=== PATIENT | female | born 1955 | race American Indian/Alaskan Native ===

== ENCOUNTER 2017-05-13 16:25 | Inpatient (IN) | payer BC ==
[2017-05-13 16:28] VITALS: BMI 29.7
[2017-05-13] MEDS ORDERED: Morphine 2 mg/ml ISec IVP STA (16:43)
[2017-05-13] MEDS ORDERED: Sodium Chloride 0.9% 1,000 ML IV STA (16:43)
--- NOTE | 2017-05-13 16:50 | ED PDOC ---
Arrival/HPI - General Chief Complaint: Abdominal Pain Time Seen by Provider: 05/13/17 16:26 Historian: Patient - History of Present Illness Narrative History of Present Illness (Text): 05/13/17 16:47 This 61 yo female with pmh diverticulitis, and endometrial Ca. s/p total hysterectomy, presents to this ED c/o LLQ abdominal pain x 7 days. Patient stated abdominal pain worsen since last night. Patient is nauseous, and she had vomited multiple times today. Denies sob, fever, rectal bleeding, or urinary symptoms. Patient is s/p appendectomy Dr. Guevara, PMD Dr. Arrieta, GI Time/Duration: 1 week Symptom Course: Worsening (since last night) Severity Level: 8 Context: Home Past Medical History - Provider Review Nursing Documentation Reviewed: Yes - Infectious Disease Hx of Infectious Diseases: None - Cardiac Hx Cardiac Disorders: No - Pulmonary Hx Respiratory Disorders: No - Neurological Hx Neurological Disorder: No - HEENT Hx HEENT Disorder: No - Renal Hx Renal Disorder: No - Endocrine/Metabolic Hx Endocrine Disorders: No - Hematological/Oncological Hx Cancer: Yes (endometrial) - Integumentary Hx Dermatological Disorder: No - Musculoskeletal/Rheumatological Hx Back Pain: Yes Hx Falls: No - Gastrointestinal Hx Gastroesophageal Reflux: Yes - Genitourinary/Gynecological Hx Genitourinary Disorders: No - Psychiatric Hx Psychophysiologic Disorder: No Hx Substance Use: No - Surgical History Hx Hysterectomy: Yes - Anesthesia Hx Anesthesia: Yes Hx Anesthesia Reactions: No Hx Malignant Hyperthermia: No Family/Social History - Physician Review Nursing Documentation Reviewed: Yes Family/Social History: No Known Family HX Smoking Status: Former Smoker Hx Alcohol Use: Yes Frequency of alcohol use: Socially Hx Substance Use: No Allergies/Home Meds Allergies/Adverse Reactions: Allergies No Known Allergies Allergy (Verified 04/29/16 00:55) Home Medications: Home Meds Medication Instructions Recorded Confirmed Pantoprazole Sodium [Protonix] 1 tab PO DAILY PRN 05/13/17 05/13/17 Review of Systems - Review of Systems Constitutional: Normal. absent: Fatigue, Weight Change, Fevers Eyes: Normal ENT: Normal Respiratory: Normal Cardiovascular: Normal Gastrointestinal: Abdominal Pain, Nausea, Vomiting Genitourinary Female: Normal Musculoskeletal: Normal Skin: Normal Neurological: Normal Endocrine: Normal Hemo/Lymphatic: Normal Psychiatric: Normal Physical Exam Vital Signs Temp Pulse Resp BP Pulse Ox 05/13/17 22:50 92 H 16 114/72 96 05/13/17 18:25 103 H 18 139/86 97 05/13/17 16:28 99.1 F 105 H 18 147/87 98 Temperature: Afebrile Blood Pressure: Normal Pulse: Regular Respiratory Rate: Normal Appearance: Positive for: Well-Appearing, Non-Toxic, Uncomfortable Pain Distress: Moderate Mental Status: Positive for: Alert and Oriented X 3 - Systems Exam Head: Present: Atraumatic, Normocephalic Pupils: Present: PERRL Extroacular Muscles: Present: EOMI Conjunctiva: Present: Normal Mouth: Present: Moist Mucous Membranes Neck: Present: Normal Range of Motion Respiratory/Chest: Present: Clear to Auscultation, Good Air Exchange. No: Respiratory Distress, Accessory Muscle Use Cardiovascular: Present: Regular Rate and Rhythm, Normal S1, S2. No: Murmurs Abdomen: Present: Tenderness (LLQ tenderness on palpation), Normal Bowel Sounds. No: Distention, Peritoneal Signs, Rebound, Guarding Back: Present: Normal Inspection. No: CVA Tenderness Upper Extremity: Present: Normal Inspection, Normal ROM, NORMAL PULSES, Neurovascularly Intact, Capillary Refill < 2s. No: Cyanosis, Edema Lower Extremity: Present: Normal Inspection, NORMAL PULSES, Normal ROM, Neurovascularly Intact, Capillary Refill < 2 s. No: Edema, CALF TENDERNESS Neurological: Present: GCS=15, CN II-XII Intact, Speech Normal, Motor Func Grossly Intact, Normal Sensory Function, Normal Cerebellar Funct, Gait Normal Skin: Present: Warm, Dry, Normal Color. No: Rashes Psychiatric: Present: Alert, Oriented x 3 Medical Decision Making ED Course and Treatment: 05/13/17 22:[address] Rose regarding patient history, and symptoms. We reviewed labs and CT/ US results. He agrees with plan for admission for diverticulitis. Re-evaluation Time: 22:54 Reassessment Condition: Re-examined, Improved - Lab Interpretations Lab Results: 05/13/17 17:26 05/13/17 17:26 Lab Results 05/13/17 20:50: Urine Color Yellow, Urine Appearance Clear, Urine pH 7.0, Ur Specific [place] 1.010, Urine Protein Negative, Urine Glucose (UA) Negative, Urine Ketones Negative, Urine Blood Trace-intact H, Urine Nitrate Negative, Urine Bilirubin Negative, Urine Urobilinogen 0.2, Ur Leukocyte Esterase Negative , Urine RBC 0 - 2, Urine WBC 0 - 2, Ur Epithelial Cells 3 - 4 05/13/17 17:26: Sodium 140, Potassium 3.6, Chloride 100, Carbon Dioxide 28, Anion Gap 16, BUN 14, Creatinine 0.5, Est GFR ( Amer) > 60, Est GFR (Non- Af Amer) > 60, Random Glucose 100, Calcium 9.2, Total Bilirubin 0.6, AST 40 H, ALT 29, Alkaline Phosphatase 104, Total Protein 8.3, Albumin 4.3, Globulin 4.1, Albumin/Globulin Ratio 1.0 L, Amylase 68, Lipase 30 05/13/17 17:26: PT 11.7, INR 1.08, APTT 26.3 05/13/17 17:26: WBC 12.1 H D, RBC 3.83, Hgb 11.7 L, Hct 36.3, MCV 94.8, MCH 30.5 , MCHC 32.2, RDW 13.3, Plt Count 286, MPV 9.7, Gran % 72.9 H, Lymph % (Auto) 18.8 L, [place] % (Auto) 7.9 H, Eos % (Auto) 0.2 L, Baso % (Auto) 0.2, Gran # 8.83 H, Lymph # 2.3, [place] # 1.0 H, Eos # 0.0, Baso # 0.03 I have reviewed the lab results: Yes Interpretation: Abnormal lab values - RAD Interpretation Narrative RAD Interpretations (Text): 05/13/17 20:27 [facility] Preliminary Radiology Report with Addendum Call: [phone] assistance Online chat: [email or web address] Patient Name: FREDERICK CONTE I FINDINGS: Lower thorax: No acute findings. ABDOMEN: Liver: Fatty infiltration of the liver. Gallbladder and bile ducts: Several gallstones. Pancreas: Unremarkable. No mass. No ductal dilation. Spleen: Unremarkable. No splenomegaly. Adrenals: Unremarkable. No mass. Kidneys and ureters: Subcentimeter low-density lesion in the kidneys are too small to characterize. No hydronephrosis. Stomach and bowel: There is significant wall thickening noted involving the descending/sigmoid colon. This may represent colitis less likely due to diverticulitis. There are several diverticula and minimal pericolonic infiltration of fat. Bowel evaluation is limited due to lack of distention. Appendix: No findings to suggest acute appendicitis. PELVIS: Bladder: Unremarkable. No mass. Reproductive: Unremarkable as visualized. ABDOMEN and PELVIS: Intraperitoneal space: Unremarkable. No free air. No significant fluid collection. Bones/joints: No acute fracture. No dislocation. Soft tissues: Small fat-containing umbilical hernia. Vasculature: The left ovarian vein is dilated there is ? hypodensity within the left ovarian vein. Possibility of a thrombus with thrombophlebitis cannot be excluded. Lymph nodes: Unremarkable. No enlarged lymph nodes. IMPRESSION: 1. Several gallstones. 2. There is significant wall thickening noted involving the descending/sigmoid colon. This may represent colitis less likely due to diverticulitis. There are several diverticula and minimal pericolonic infiltration of fat. 3. The left ovarian vein is dilated there is ? hypodensity within the left ovarian vein. Possibility of a thrombus with thrombophlebitis cannot be excluded. Thank you for allowing us to participate in the care of your patient. Dictated and Authenticated by: Joyce Norwood MD 05/13/2017 7:54 PM Eastern Time ([place] & [place]) Radiology Orders: 05/13/17 16:46 ABD & PELVIS IV CONTRAST ONLY [CT] Stat 05/13/17 20:13 TRANSVAGINAL [US] Stat 05/13/17 22:38 ABDOMEN COMPLETE [US] Routine 05/13/17 22:55 CHEST PORTABLE [RAD] Stat - EKG Interpretation Interpreted by ED Physician: Yes (NSR @ 92 bpm. Normal interval) Type: 12 lead EKG Comparison: No previous EKG avail. - Medication Orders Current Medication Orders: Docusate Sodium (Colace) 100 mg PO BID [facility] Famotidine (Pepcid) 20 mg IVP DAILY [facility] Ciprofloxacin (Cipro 200mg/100ml D5w) 100 mls @ 67 mls/hr IVPB Q12 [facility] PRN Reason: Protocol Stop: 05/14/17 00:15 Metronidazole (Flagyl) 500 mg in 100 mls @ 100 mls/hr IVPB Q8 [facility] PRN Reason: Protocol Sodium Chloride (Sodium Chloride 0.9%) 1,000 mls @ 125 mls/hr IV .Q8H [facility] Morphine Sulfate (Morphine) 4 mg IVP Q4H PRN PRN Reason: Pain, moderate (4-7) Ondansetron HCl (Zofran Inj) 4 mg IVP Q4H PRN PRN Reason: Nausea/Vomiting Discontinued Medications Famotidine (Pepcid) 20 mg IVP STAT STA Stop: 05/13/17 16:44 Last Admin: 05/13/17 17:30 Dose: 20 mg Sodium Chloride (Sodium Chloride 0.9%) 1,000 mls @ 1,000 mls/hr IV .Q1H [facility] Stop: 05/13/17 17:42 Last Admin: 05/13/17 17:28 Dose: 1,000 mls/hr Ciprofloxacin (Cipro 400mg/200ml Dsw) 400 mg in 200 mls @ 133.3 mls/hr IVPB STAT STA PRN Reason: Protocol Stop: 05/13/17 21:58 Last Admin: 05/13/17 22:45 Dose: 133.3 mls/hr Metronidazole (Flagyl) 500 mg in 100 mls @ 100 mls/hr IVPB STAT STA PRN Reason: Protocol Stop: 05/13/17 21:28 Last Admin: 05/13/17 21:12 Dose: 100 mls/hr Iohexol (Omnipaque 350 100 Ml) Confirm Administered Dose 350 mg .ROUTE .STK-MED ONE Stop: 05/13/17 18:44 Morphine Sulfate (Morphine) 2 mg IVP STAT STA Stop: 05/13/17 16:44 Last Admin: 05/13/17 17:30 Dose: 2 mg Re-Assess: DINA Pain Assessment Document 05/13/17 18:30 ARMEN (Rec: 05/13/17 18:51 ARMEN [id number]) Pain Reassessment Is this a pain reassessment? Yes Presence of Pain Presence of Pain Yes Pain Scale Used Pain Scale Used Numeric Morphine Sulfate (Morphine) 4 mg IVP STAT STA Stop: 05/13/17 19:03 Last Admin: 05/13/17 19:51 Dose: 4 mg Ondansetron HCl (Zofran Inj) 4 mg IVP STAT STA Stop: 05/13/17 16:44 Last Admin: 05/13/17 17:30 Dose: 4 mg Ondansetron HCl (Zofran Inj) 4 mg IVP STAT STA Stop: 05/13/17 19:03 Last Admin: 05/13/17 19:51 Dose: 4 mg Disposition/Present on Arrival - Present on Arrival Any Indicators Present on Arrival: No History of DVT/PE: No History of Uncontrolled Diabetes: No Urinary Catheter: No History of Decub. Ulcer: No History Surgical Site Infection Following: None - Disposition Have Diagnosis and Disposition been Completed?: Yes Diagnosis: Diverticulitis, Intractable abdominal pain Disposition: HOSPITALIZED Disposition Time: 22:54 Patient Plan: Admission Patient Problems: Current Active Problems Problem Status Onset Diverticulitis Acute Intractable abdominal pain Acute Condition: STABLE Referrals: Stefan Guevara MD [Primary Care Provider] - Follow up with primary
[2017-05-13 17:45] LABS: BASO # 0.03 K/mm3 (0.0-2.0); BASO % 0.2 % (0.0-3.0); EOS % 0.2 % (1.5-5.0); GRAN # 8.83 (1.4-6.5); GRAN % 72.9 % (50.0-68.0); HEMOGLOBIN 11.7 gm/dL (12.0-16.0); LYMPH # 2.3 (1.2-3.4); LYMPH % 18.8 % (22.0-35.0); MEAN CELL VOLUME 94.8 fL (80.0-105.0); MEAN CORPUSCULAR HEMOGLOBIN 30.5 pg (25.0-35.0); MEAN CORPUSCULAR HGB CONC 32.2 g/dl (31.0-37.0); MEAN PLATELET VOLUME 9.7 fl (7.0-11.0); MONO % 7.9 % (1.0-6.0); PLATELET COUNT 286 10^3/uL (120.0-450.0); RBC 3.83 10^6/uL (3.5-6.1); RED CELL DISTRIBUTION WIDTH 13.3 % (11.5-14.5); WHITE BLOOD COUNT 12.1 10^3/ul (4.5-11.0)
[2017-05-13 17:46] LABS: INR 1.08 (0.93-1.08); PARTIAL THROMBOPLASTIN TIME 26.3 Seconds (23.7-30.8); PROTHROMBIN TIME 11.7 Seconds (9.9-11.8)
[2017-05-13 17:50] LABS: ALBUMIN 4.3 g/dL (3.0-4.8); ALT/SGPT 29 U/L (7-56); AMYLASE 68 U/L (35-125); AST/SGOT 40 U/L (15-39); BLOOD UREA NITROGEN 14 mg/dL (7-21); CALCIUM 9.2 mg/dL (8.4-10.5); GFR AFRICAN-AMERICAN > 60; GFR NON-AFRICAN AMERICAN > 60; LIPASE 30 U/L (23-300)
[2017-05-13] MEDS ORDERED: HYDROmorphone 0.5 mg/0.5 ml ISec IVP STA (18:15)
[2017-05-13] MEDS ORDERED: Iohexol 350 MG/100 ML VIAL ONE (18:43)
[2017-05-13] MEDS ORDERED: Morphine 4 mg/ml ISec IVP STA (19:02)
[2017-05-13] MEDS ORDERED: diltiaZEM IVPB 100mg in NS 100 ML IV PRN (19:21)
[2017-05-13] MEDS ORDERED: Ciprofloxacin 400mg/200ml D5W 400 MG/200 ML BAG IVPB STA (20:28)
[2017-05-13] MEDS ORDERED: metroNIDAZOLE IV 500 mg/100 ml 500 MG/100 ML BAG IVPB STA (20:29)
[2017-05-13 21:18] LABS: URINE BILIRUBIN NEGATIVE (NEGATIVE); URINE BLOOD TRACE-INTACT (NEGATIVE); URINE GLUCOSE (UA) NEGATIVE (NEGATIVE); URINE LEUKOCYTE ESTERASE NEGATIVE Leu/uL (NEGATIVE); URINE NITRATE NEGATIVE (NEGATIVE); URINE PROTEIN NEGATIVE mg/dL (<30 mg/dL); URINE UROBILINOGEN 0.2 E.U./dL (<1 E.U./dL)
[2017-05-13 21:22] LABS: URINE APPEARANCE CLEAR (CLEAR); URINE COLOR YELLOW (YELLOW)
[2017-05-13 21:28] LABS: URINE RBC 0 - 2 /hpf (0-2); URINE WBC 0 - 2 /hpf (0-6)
--- NOTE | 2017-05-13 22:26 | CP.PCM.CON ---
History of Present Illness - History of Present Illness History of Present Illness: SURGERY CONSULT NOTE FOR DR. BERG 61F with abdominal pain that has been going on and off for the past weeks. She states pain is much more intense which prompted her to go to her primary doctor , who sent her to the ED. She states she pain was associated with nausea/ vomiting, vomiting content was clear fluid and mucus, non-bloody. She states she also had a fever of 100.4 at her primary physician's office. She denies any diarrhea, but admits to having constipation at times. Her last episode of these symptoms were last year and she was diagnosed with diverticulitis. This is her second time in the hospital for this. PMH: Diverticulitis, Endometrial CA PSH:Hysterectomy, salpingoopherectomy Social: casual tobacco user (1ppw), denies alcohol/ illicit drugs Allergies: NKDA Past Patient History - Infectious Disease Hx of Infectious Diseases: None - Past Social History Smoking Status: Former Smoker - CARDIAC Hx Cardiac Disorders: No - PULMONARY Hx Respiratory Disorders: No - NEUROLOGICAL Hx Neurological Disorder: No - HEENT Hx HEENT Problems: No - RENAL Hx Chronic Kidney Disease: No - ENDOCRINE/METABOLIC Hx Endocrine Disorders: No - HEMATOLOGICAL/ONCOLOGICAL Hx Cancer: Yes (endometrial) - INTEGUMENTARY Hx Dermatological Problems: No - MUSCULOSKELETAL/RHEUMATOLOGICAL Hx Back Pain: Yes Hx Falls: No - GASTROINTESTINAL Hx Gastroesophageal Reflux: Yes - GENITOURINARY/GYNECOLOGICAL Hx Genitourinary Disorders: No - PSYCHIATRIC Hx Psychophysiologic Disorder: No Hx Substance Use: No - SURGICAL HISTORY Hx Hysterectomy: Yes - ANESTHESIA Hx Anesthesia: Yes Hx Anesthesia Reactions: No Hx Malignant Hyperthermia: No Meds Allergies/Adverse Reactions: Allergies Allergy/AdvReac Type Severity Reaction Status Date / Time No Known Allergies Allergy Verified 04/29/16 00:55 Physical Exam - Constitutional Appears: Other (uncomfortable) - Head Exam Head Exam: ATRAUMATIC - Eye Exam Eye Exam: EOMI, PERRL - ENT Exam ENT Exam: Mucous Membranes Moist - Respiratory Exam Respiratory Exam: Clear to Auscultation Bilateral, NORMAL BREATHING PATTERN - Cardiovascular Exam Cardiovascular Exam: REGULAR RHYTHM, +S1, +S2 - GI/Abdominal Exam GI & Abdominal Exam: Guarding, Soft, Tenderness (moderate tenderness in the LLQ) . absent: Distended, Firm, Rebound, Rigid - Extremities Exam Extremities exam: Positive for: pedal edema, tenderness - Neurological Exam Neurological exam: Alert, Oriented x3 - Psychiatric Exam Psychiatric exam: Normal Affect, Normal Mood - Skin Skin Exam: Dry, Intact, Normal Color, Warm Results - Vital Signs Recent Vital Signs: Last Vital Signs Temp 99.1 F 05/13/17 16:28 Pulse 103 H 05/13/17 18:25 Resp 18 05/13/17 18:25 BP 139/86 05/13/17 18:25 Pulse Ox 97 05/13/17 18:25 - Labs Result Diagrams: 05/13/17 17:26 05/13/17 17:26 Labs: Laboratory Results - last 24 hr 05/13/17 05/13/17 05/13/17 17:26 17:26 17:26 WBC 12.1 H D RBC 3.83 Hgb 11.7 L Hct 36.3 MCV 94.8 MCH 30.5 MCHC 32.2 RDW 13.3 Plt Count 286 MPV 9.7 Gran % 72.9 H Lymph % (Auto) 18.8 L [place] % (Auto) 7.9 H Eos % (Auto) 0.2 L Baso % (Auto) 0.2 Gran # 8.83 H Lymph # 2.3 [place] # 1.0 H Eos # 0.0 Baso # 0.03 PT 11.7 INR 1.08 APTT 26.3 Sodium 140 Potassium 3.6 Chloride 100 Carbon Dioxide 28 Anion Gap 16 BUN 14 Creatinine 0.5 Est GFR ( Amer) > 60 Est GFR (Non-Af Amer) > 60 Random Glucose 100 Calcium 9.2 Total Bilirubin 0.6 AST 40 H ALT 29 Alkaline Phosphatase 104 Total Protein 8.3 Albumin 4.3 Globulin 4.1 Albumin/Globulin Ratio 1.0 L Amylase 68 Lipase 30 Urine Color Urine Appearance Urine pH Ur Specific [place] Urine Protein Urine Glucose (UA) Urine Ketones Urine Blood Urine Nitrate Urine Bilirubin Urine Urobilinogen Ur Leukocyte Esterase Urine RBC Urine WBC Ur Epithelial Cells 05/13/17 20:50 WBC RBC Hgb Hct MCV MCH MCHC RDW Plt Count MPV Gran % Lymph % (Auto) [place] % (Auto) Eos % (Auto) Baso % (Auto) Gran # Lymph # [place] # Eos # Baso # PT INR APTT Sodium Potassium Chloride Carbon Dioxide Anion Gap BUN Creatinine Est GFR ( Amer) Est GFR (Non-Af Amer) Random Glucose Calcium Total Bilirubin AST ALT Alkaline Phosphatase Total Protein Albumin Globulin Albumin/Globulin Ratio Amylase Lipase Urine Color Yellow Urine Appearance Clear Urine pH 7.0 Ur Specific [place] 1.010 Urine Protein Negative Urine Glucose (UA) Negative Urine Ketones Negative Urine Blood Trace-intact H Urine Nitrate Negative Urine Bilirubin Negative Urine Urobilinogen 0.2 Ur Leukocyte Esterase Negative Urine RBC 0 - 2 Urine WBC 0 - 2 Ur Epithelial Cells 3 - 4 Assessment & Plan - Assessment and Plan (Free Text) Assessment: 61F with divert[address]: cholelithiasis, descending/sigmoid thickening suggesting of diverticulitis, possible ovarian vein thrombosis Abd US: Cholelithiasis, no wall thickening or pericholecystic fluid Plan: - NPO, pain control - IVF, anti-emetic, stool softeners - continue antibiotics GI/DVT ppx Further recs discuss with Dr. Chandana Sotelo, PGY2
[2017-05-13] MEDS ORDERED: Morphine 4 mg/ml ISec IVP PRN (22:33)
[2017-05-13] MEDS ORDERED: Ciprofloxacin 200mg/100ml D5W 100 ML IVPB SCH (22:45)
[2017-05-13] MEDS: Sodium Chloride 0.9% 1,000 ML IV SCH (23:30)
--- NOTE | 2017-05-13 23:33 | CP.PCM.HP ---
<BENITEZ DELACRUZ - Last Filed: 05/14/17 05:52> History of Present Illness - History of Present Illness History of Present Illness: 61 year old female PMH of diverticulitis, endometrial ca s/p 8 rounds chemotherapy [place] [facility] [place] with complaints of LLQ pain which started about 1 week ago. Patient states that the pain initially waxed and waned, appearing one day, resolving the next. Patient states that Friday is when the pain started to advance but became especially prominent the morning of 05/12 while at work. Patient states that the pain was a 08/12 and describes it as a sharp pain which radiates to her left back. She states the pain is exacerbated with movements, and has so far only been slightly relieved morphine which was administered in the ED. Patient states that she has vomited several times in the past two days, describing the vomit as clear with mucous. Patient states that she has also been constipated for the past week especially, stating her last bowel movement was Friday. Patient also admits to dizziness and nausea for the past two days. While trying to make a bowel movement this morning , patient states that bearing down caused excruciating pain, so has since been avoiding making a bowel movement. Patient denies chest pain, shortness of breath , headache, diarrhea. PMD:Dr. Guevara PMH:Diverticulitis PSH: Appendectomy, Hysterectomy Allergies:NKDA SH: smoked tobacco for 15 years, denies alcohol consumption FH: Father-esophageal cancer, sister- breast cancer, multiple myeloma Present on Admission - Present on Admission Any Indicators Present on Admission: No Review of Systems - Constitutional Constitutional: Chills. absent: Headache, Increased Appetite - EENT Eyes: absent: Blurred Vision, Change in Vision - Cardiovascular Cardiovascular: Leg Edema. absent: Chest Pain, Palpitations - Respiratory Respiratory: Cough. absent: Dyspnea, Hemoptysis - Gastrointestinal Gastrointestinal: Abdominal Pain, Constipation. absent: Diarrhea, Hematochezia - Genitourinary Genitourinary: absent: Flank Pain, Hematuria - Neurological Neurological: Dizziness. absent: Confusion, Headaches, Loss of Vision - Endocrine Endocrine: Cold Intolorance. absent: Change in Body Appearance, Fatigue Past Patient History - Infectious Disease Hx of Infectious Diseases: None - Past Social History Smoking Status: Former Smoker - CARDIAC Hx Cardiac Disorders: No - PULMONARY Hx Respiratory Disorders: No - NEUROLOGICAL Hx Neurological Disorder: No - HEENT Hx HEENT Problems: No - RENAL Hx Chronic Kidney Disease: No - ENDOCRINE/METABOLIC Hx Endocrine Disorders: No - HEMATOLOGICAL/ONCOLOGICAL Hx Cancer: Yes (endometrial) - INTEGUMENTARY Hx Dermatological Problems: No - MUSCULOSKELETAL/RHEUMATOLOGICAL Hx Back Pain: Yes Hx Falls: No - GASTROINTESTINAL Hx Gastroesophageal Reflux: Yes - GENITOURINARY/GYNECOLOGICAL Hx Genitourinary Disorders: No - PSYCHIATRIC Hx Psychophysiologic Disorder: No Hx Substance Use: No - SURGICAL HISTORY Hx Hysterectomy: Yes - ANESTHESIA Hx Anesthesia: Yes Hx Anesthesia Reactions: No Hx Malignant Hyperthermia: No Meds Allergies/Adverse Reactions: Allergies Allergy/AdvReac Type Severity Reaction Status Date / Time No Known Allergies Allergy Verified 04/29/16 00:55 Physical Exam - Constitutional Appears: In Acute Distress - Head Exam Head Exam: ATRAUMATIC, NORMAL INSPECTION, NORMOCEPHALIC - Eye Exam Eye Exam: EOMI, Normal appearance, PERRL - ENT Exam ENT Exam: Mucous Membranes Moist, Normal Exam - Neck Exam Neck exam: Positive for: Normal Inspection - Respiratory Exam Respiratory Exam: Clear to Auscultation Bilateral, NORMAL BREATHING PATTERN - Cardiovascular Exam Cardiovascular Exam: REGULAR RHYTHM. absent: Clicks, Gallop, JVD - GI/Abdominal Exam GI & Abdominal Exam: Normal Bowel Sounds, Soft. absent: Diminished Bowel Sounds , Distended, Guarding - Extremities Exam Extremities exam: Negative for: calf tenderness, joint swelling - Neurological Exam Neurological exam: Alert, Oriented x3 - Psychiatric Exam Psychiatric exam: Normal Affect, Normal Mood - Skin Skin Exam: Intact, Normal Color, Warm Results - Vital Signs Recent Vital Signs: Last Vital Signs Temp 99.1 F 05/13/17 16:28 Pulse 92 H 05/13/17 22:50 Resp 16 05/13/17 22:50 BP 114/72 05/13/17 22:50 Pulse Ox 96 05/13/17 22:50 - Labs Result Diagrams: 05/13/17 17:26 05/13/17 17:26 Assessment & Plan - Assessment and Plan (Free Text) Assessment: 61 year old female with PMH diverticulitis presents to ED with diagnosis of diverticulitis. Plan: 1. Diverticulitis -Will remain NPO -GI and Gen Surg on board -Continue with Cipro 400 mg -Continue with metronidazole IV 500 mg -Abdomen and Pelvic CT scan ordered, results pending -Transvaginal US ordered, results pending -Continue with Zofran 4 mg IVP for nausea -Continue with Morphine 4mg IVP for pain control DVT/GI prophylaxis- SCDs, Pepcid 20 mg <Rose HERNANDEZ,Hank - Last Filed: 05/19/17 10:17> Results - Vital Signs Recent Vital Signs: Last Vital Signs Temp 98.1 F 05/16/17 07:30 Pulse 70 05/16/17 07:30 Resp 16 05/16/17 07:30 BP 118/81 05/16/17 07:30 Pulse Ox 99 05/16/17 07:30 - Labs Result Diagrams: 05/15/17 10:30 05/15/17 10:40 Attending/Attestation - Attestation I have personally seen and examined this patient.: Yes I have fully participated in the care of the patient.: Yes I have reviewed all pertinent clinical information: Yes Notes (Text): 05/19/17 10:17 -I agree with the above H&P completed by the resident physician.
[2017-05-14] MEDS: metroNIDAZOLE IV 500 mg/100 ml 500 MG/100 ML BAG IVPB SCH ×4 (01:40→21:14)
[2017-05-14] MEDS: Sodium Chloride 0.9% 1,000 ML IV SCH ×2 (06:52→17:29)
--- NOTE | 2017-05-14 07:15 | RAD ---
HISTORY: admission COMPARISON: 12/26/2015 FINDINGS: LUNGS: No active pulmonary disease. PLEURA: No significant pleural effusion identified, no pneumothorax apparent. CARDIOVASCULAR: Normal heart size. Top-normal bronchovascular markings- similar-appearing OSSEOUS STRUCTURES: Thoracic spondylosis. Bilateral shoulder arthrosis VISUALIZED UPPER ABDOMEN: Normal. OTHER FINDINGS: The prior central line has been removed asymmetrically elevated right hemidiaphragm unchanged IMPRESSION: No active disease.
[2017-05-14] MEDS ORDERED: Ciprofloxacin 400mg/200ml D5W 400 MG/200 ML BAG IVPB SCH (08:00)
--- NOTE | 2017-05-14 08:22 | CP.PCM.PN ---
Subjective - Date & Time of Evaluation Date of Evaluation: 05/14/17 Time of Evaluation: 08:19 - Subjective Subjective: General Surgery Progress Note: Resident: Claire Attending: Chandana HPI: Patient seen and examined at bedside. Complaining of a headache and belly pain in both the RLQ/LLQ. The pain has improved since yesterday. She has no other complaints at this time. Denies any nausea, vomiting, fever, constipation , diarrhea, chest pain, SOB. Objective - Vital Signs/Intake and Output Vital Signs (last 24 hours): Temp Pulse Resp BP Pulse Ox 99.7 F H 100 H 20 132/80 96 05/14/17 08:08 05/14/17 08:08 05/13/17 23:45 05/13/17 23:45 05/13/17 22:50 - Medications Medications: Current Medications Docusate Sodium (Colace) 100 mg PO BID [facility] Last Admin: 05/13/17 23:31 Dose: 100 mg Famotidine (Pepcid) 20 mg IVP DAILY [facility] Metronidazole (Flagyl) 500 mg in 100 mls @ 100 mls/hr IVPB Q8 [facility] PRN Reason: Protocol Last Admin: 05/14/17 05:59 Dose: 100 mls/hr Sodium Chloride (Sodium Chloride 0.9%) 1,000 mls @ 125 mls/hr IV .Q8H [facility] Last Admin: 05/14/17 06:52 Dose: 125 mls/hr Ciprofloxacin (Cipro 400mg/200ml Dsw) 400 mg in 200 mls @ 133.3 mls/hr IVPB Q12 [facility] PRN Reason: Protocol Stop: 05/14/17 09:31 Morphine Sulfate (Morphine) 4 mg IVP Q4H PRN PRN Reason: Pain, moderate (4-7) Last Admin: 05/14/17 05:27 Dose: 4 mg Ondansetron HCl (Zofran Inj) 4 mg IVP Q4H PRN PRN Reason: Nausea/Vomiting - Labs Labs: PT 11.7 Seconds (9.9-11.8) 05/13/17 17:26 INR 1.08 (0.93-1.08) 05/13/17 17:26 APTT 26.3 Seconds (23.7-30.8) 05/13/17 17:26 - Constitutional Appears: Non-toxic - Head Exam Head Exam: ATRAUMATIC - Eye Exam Eye Exam: EOMI - ENT Exam ENT Exam: Mucous Membranes Moist - Respiratory Exam Respiratory Exam: Clear to Ausculation Bilateral, NORMAL BREATHING PATTERN - Cardiovascular Exam Cardiovascular Exam: REGULAR RHYTHM. absent: Gallop, Rubs, Murmur - GI/Abdominal Exam GI & Abdominal Exam: Guarding (RLQ/LLQ), Tenderness (RLQ/LLQ) - Extremities Exam Extremities Exam: Normal Inspection - Back Exam Back Exam: NORMAL INSPECTION - Neurological Exam Neurological Exam: Alert, Awake, Oriented x3 - Skin Skin Exam: Normal Color, Warm Assessment and Plan - Assessment and Plan (Free Text) Plan: 61 y/o AA Female presents w/ her 2nd episode of Diverticulitis w/o perforation or abscess * NPO * Cipro/Flagyl * Morphine for pain * Pepcid for GI PPx Jose Alejandro BRODY PGY-1
--- NOTE | 2017-05-14 09:31 | CT ---
PROCEDURE: CT Abdomen and Pelvis with contrast HISTORY: LLQ abdominal tenderness COMPARISON: None. TECHNIQUE: Contrast dose: 100 cc of Omni 350 Radiation dose: Total exam DLP = 732 mGy-cm. This CT exam was performed using one or more of the following dose reduction techniques: Automated exposure control, adjustment of the mA and/or kV according to patient size, and/or use of iterative reconstruction technique. FINDINGS: LOWER THORAX: Unremarkable. LIVER: Unremarkable. No gross lesion or ductal dilatation. GALLBLADDER AND BILE DUCTS: Multiple gallstones PANCREAS: Unremarkable. No gross lesion or ductal dilatation. SPLEEN: Unremarkable. ADRENALS: Unremarkable. No mass. KIDNEYS AND URETERS: Unremarkable. No hydronephrosis. No solid mass. VASCULATURE: Unremarkable. No aortic aneurysm. BOWEL: There is diverticulitis in the descending and sigmoid colon. Inflammatory changes are seen in the mesenteric. There is mural thickening. Multiple diverticula. There is no evidence of abscess. APPENDIX: Normal appendix. PERITONEUM: Unremarkable. No free fluid. No free air. Small fact containing umbilical hernia. Small amount of free fluid in the pelvis LYMPH NODES: Unremarkable. No enlarged lymph nodes. BLADDER: Unremarkable. REPRODUCTIVE: Hysterectomy BONES: No acute fracture. OTHER FINDINGS: Minor discrepancies with VR report which favored colitis over diverticulitis. IMPRESSION: Diverticulitis of the descending and sigmoid colon. Multiple gallstones
--- NOTE | 2017-05-14 10:11 | CP.PCM.CON ---
<Romeo Platt - Last Filed: 05/14/17 12:00> History of Present Illness - History of Present Illness History of Present Illness: PGY5 GI Fellow Consult Note Patient is a 61yo female with PMHx significant for endometrial cancer s/p TAHBSO and chemotherapy, sigmoid diverticulosis/itis who presents with abdominal pain. States that she developed sudden onset LLQ abdominal pain one week ago. Initially symptoms were intermittent but gradually intensified and radiated to her left flank and back in the days leading up to admission. She notes 100F fever and multiple episodes of bilious emesis prior to arrival. By the time she was admitted she had not passed stool or flatus for over 24H but since admission has begun to pass flatus and has improved appetite. Did not use any OTC medications at home and denies any weight loss, hematochezia, melena. She had similar symptoms one year ago and was diagnosed with sigmoid diverticulitis. She did noit have a colonoscopy after this episode. PMHx: See HPI PSHx: Appendectomy, TAHBSO FHx: Father - throat cancer Social: +tobacco use, Denies EtOH or illicit drug use Endo: Colonoscopy >10 years ago Review of Systems - Constitutional Constitutional: Anorexia, Fever. absent: Chills, Weight Loss - EENT Eyes: absent: Change in Vision Nose/Mouth/Throat: absent: Sore Throat - Cardiovascular Cardiovascular: absent: Chest Pain, Dyspnea, Dyspnea on Exertion - Respiratory Respiratory: absent: Cough, Dyspnea, Dyspnea on Exertion - Gastrointestinal Gastrointestinal: Abdominal Pain, Constipation, Cramping, Nausea, Vomiting. absent: Diarrhea, Dyspepsia, Heartburn, Hematemesis, Loose Stools, Melena, Odynophagia - Genitourinary Genitourinary: absent: Dysuria, Urinary Frequency, Urinary Urgency - Musculoskeletal Musculoskeletal: absent: Back Pain, Neck Pain - Integumentary Integumentary: absent: Dry Skin, New Lesions, Rash - Neurological Neurological: absent: Dizziness, Numbness, Focal Weakness - Psychiatric Psychiatric: absent: Anxiety, Depression - Endocrine Endocrine: absent: Polydipsia, Polyphagia, Polyuria - Hematologic/Lymphatic Hematologic: absent: Easy Bleeding, Easy Bruising, Lymphadenopathy Past Patient History - Infectious Disease Hx of Infectious Diseases: None - Past Social History Smoking Status: Former Smoker - CARDIAC Hx Cardiac Disorders: No - PULMONARY Hx Respiratory Disorders: No - NEUROLOGICAL Hx Neurological Disorder: No - HEENT Hx HEENT Problems: No - RENAL Hx Chronic Kidney Disease: No - ENDOCRINE/METABOLIC Hx Endocrine Disorders: No - HEMATOLOGICAL/ONCOLOGICAL Hx Cancer: Yes (endometrial) - INTEGUMENTARY Hx Dermatological Problems: No - MUSCULOSKELETAL/RHEUMATOLOGICAL Hx Back Pain: Yes Hx Falls: No - GASTROINTESTINAL Hx Gastroesophageal Reflux: Yes - GENITOURINARY/GYNECOLOGICAL Hx Genitourinary Disorders: No - PSYCHIATRIC Hx Psychophysiologic Disorder: No Hx Substance Use: No - SURGICAL HISTORY Hx Hysterectomy: Yes - ANESTHESIA Hx Anesthesia: Yes Hx Anesthesia Reactions: No Hx Malignant Hyperthermia: No Meds Allergies/Adverse Reactions: Allergies Allergy/AdvReac Type Severity Reaction Status Date / Time No Known Allergies Allergy Verified 04/29/16 00:55 - Medications Medications: Current Medications Docusate Sodium (Colace) 100 mg PO BID [facility] Last Admin: 05/14/17 09:32 Dose: 100 mg Famotidine (Pepcid) 20 mg IVP DAILY [facility] Last Admin: 05/14/17 09:32 Dose: 20 mg Metronidazole (Flagyl) 500 mg in 100 mls @ 100 mls/hr IVPB Q8 [facility] PRN Reason: Protocol Last Admin: 05/14/17 05:59 Dose: 100 mls/hr Sodium Chloride (Sodium Chloride 0.9%) 1,000 mls @ 125 mls/hr IV .Q8H [facility] Last Admin: 05/14/17 06:52 Dose: 125 mls/hr Morphine Sulfate (Morphine) 4 mg IVP Q4H PRN PRN Reason: Pain, moderate (4-7) Last Admin: 05/14/17 05:27 Dose: 4 mg Ondansetron HCl (Zofran Inj) 4 mg IVP Q4H PRN PRN Reason: Nausea/Vomiting Physical Exam - Constitutional Appears: Non-toxic, No Acute Distress - Eye Exam Eye Exam: EOMI, PERRL - ENT Exam ENT Exam: Mucous Membranes Moist - Respiratory Exam Respiratory Exam: Clear to Auscultation Bilateral. absent: Rales, Rhonchi, Wheezes - Cardiovascular Exam Cardiovascular Exam: RRR, +S1, +S2 - GI/Abdominal Exam GI & Abdominal Exam: Hypoactive Bowel Sounds, Soft, Tenderness (LLQ). absent: Distended, Firm, Guarding, Normal Bowel Sounds, Organomegaly - Extremities Exam Extremities exam: Positive for: normal inspection. Negative for: pedal edema - Neurological Exam Neurological exam: Alert, Oriented x3 - Psychiatric Exam Psychiatric exam: Normal Affect, Normal Mood - Skin Skin Exam: Dry, Warm Results - Vital Signs Recent Vital Signs: Last Vital Signs Temp 99.6 F 05/14/17 09:09 Pulse 90 05/14/17 09:09 Resp 18 05/14/17 09:09 BP 110/69 05/14/17 09:09 Pulse Ox 94 L 05/14/17 09:09 - Labs Result Diagrams: 05/14/17 09:50 05/14/17 09:50 Assessment & Plan - Assessment and Plan (Free Text) Assessment: Patient is a 61yo female with PMHx significant for endometrial cancer s/p TAHBSO and chemotherapy, sigmoid diverticulosis/itis who presents with abdominal pain. -Acute descending and sigmoid diverticulitis -Constipation -H/O Endometrial cancer Plan: -Uncomplicated diverticulitis with no abscess formation or perforation noted on CT with IV contrast -Recommend Cipro/Flagyl -Analgesia and antiemetics PRN -Miralax 17g PO QD, titrate dose to 1BM/day -Recommend liquid diet and advancing as tolerated -Patient will benefit from outpatient colonoscopy 6-8 weeks from resolution of acute illness - Date & Time Date: 05/14/17 Time: 09:00 <Srini Camacho MD - Last Filed: 05/14/17 12:27> Meds - Medications Medications: Current Medications Famotidine (Pepcid) 20 mg IVP DAILY [facility] Last Admin: 05/14/17 09:32 Dose: 20 mg Metronidazole (Flagyl) 500 mg in 100 mls @ 100 mls/hr IVPB Q8 [facility] PRN Reason: Protocol Last Admin: 05/14/17 05:59 Dose: 100 mls/hr Sodium Chloride (Sodium Chloride 0.9%) 1,000 mls @ 125 mls/hr IV .Q8H [facility] Last Admin: 05/14/17 06:52 Dose: 125 mls/hr Morphine Sulfate (Morphine) 4 mg IVP Q4H PRN PRN Reason: Pain, moderate (4-7) Last Admin: 05/14/17 05:27 Dose: 4 mg Ondansetron HCl (Zofran Inj) 4 mg IVP Q4H PRN PRN Reason: Nausea/Vomiting Polyethylene Glycol (Miralax) 17 gm PO DAILY [facility] Results - Vital Signs Recent Vital Signs: Last Vital Signs Temp 99.6 F 05/14/17 09:09 Pulse 90 05/14/17 09:09 Resp 18 05/14/17 09:09 BP 110/69 05/14/17 09:09 Pulse Ox 94 L 05/14/17 09:09 - Labs Result Diagrams: 05/14/17 09:50 05/14/17 09:50 Labs: Laboratory Results - last 24 hr 05/14/17 05/14/17 09:50 09:50 WBC 10.6 RBC 3.37 L Hgb 10.2 L Hct 32.1 L MCV 95.3 MCH 30.3 MCHC 31.8 RDW 13.3 Plt Count 248 MPV 9.4 Sodium 137 Potassium 3.3 L Chloride 103 Carbon Dioxide 26 Anion Gap 11 BUN 8 Creatinine 0.5 Est GFR ( Amer) > 60 Est GFR (Non-Af Amer) > 60 Random Glucose 110 Calcium 8.2 L Total Bilirubin 0.8 AST 29 ALT 30 Alkaline Phosphatase 79 Total Protein 6.9 Albumin 3.4 Globulin 3.5 Albumin/Globulin Ratio 1.0 L Attending/Attestation - Attestation I have personally seen and examined this patient.: Yes I have fully participated in the care of the patient.: Yes I have reviewed all pertinent clinical information: Yes Notes (Text): 05/14/17 12:25 Patient seen with GI fellow on rounds. This is a 61 yo female with PMHx significant for endometrial cancer s/p TAHBSO and chemotherapy, sigmoid diverticulosis/itis who presents with abdominal pain in setting of sigmoid and descending diverticulitis. Last BM one week prior. Last colonoscopy 10 years ago. Progressing well on antibiotics. Will start clear liquid diet and give bowel regimen. Needs outpatient colonoscopy ion 6 weeks. No s/s of complicated diverticulitis either biochemically or on imaging
[2017-05-14 10:20] LABS: HEMOGLOBIN 10.2 gm/dL (12.0-16.0); MEAN CELL VOLUME 95.3 fL (80.0-105.0); MEAN CORPUSCULAR HEMOGLOBIN 30.3 pg (25.0-35.0); MEAN CORPUSCULAR HGB CONC 31.8 g/dl (31.0-37.0); MEAN PLATELET VOLUME 9.4 fl (7.0-11.0); RBC 3.37 10^6/uL (3.5-6.1); RED CELL DISTRIBUTION WIDTH 13.3 % (11.5-14.5); WHITE BLOOD COUNT 10.6 10^3/ul (4.5-11.0)
[2017-05-14 10:37] LABS: ALBUMIN 3.4 g/dL (3.0-4.8); ALT/SGPT 30 U/L (7-56); AST/SGOT 29 U/L (15-39); BLOOD UREA NITROGEN 8 mg/dL (7-21); CALCIUM 8.2 mg/dL (8.4-10.5); GFR AFRICAN-AMERICAN > 60; GFR NON-AFRICAN AMERICAN > 60
--- NOTE | 2017-05-14 10:59 | US ---
HISTORY: L ovarian finding r/o thrombus /thrombphelitis COMPARISON: CT abdomen and pelvis 05/13/2007 TECHNIQUE: Vaginal FINDINGS: UTERUS: Non visual left ovary and uterus removed 2012 ENDOMETRIUM: Nonvisualized CERVIX: Nonvisualized RIGHT OVARY: Nonvisualized. Right ovary and appendix removed 2009 LEFT OVARY: Nonvisualized. Left ovary and uterus removed 2012 FREE FLUID: No significant free fluid noted. OTHER FINDINGS: Left ovarian vein not visualized IMPRESSION: Left ovarian vein not visualized to comment on. Status post hysterectomy and bilateral oophorectomy as above Preliminary report provided by Alisha mohan
--- NOTE | 2017-05-14 11:12 | US ---
HISTORY: cholelithiasis COMPARISON: None. TECHNIQUE: Sonographic evaluation of the abdomen. FINDINGS: LIVER: Measures 15.4 cm. Increased echogenicity of the liver parenchyma. In the right hepatic lobe there are 2 hypoechoic areas ; 1 measures 1.1 x 1.0 x 1.5 cm another measures 2.5 x 2.6 x 2.3 cm. . These are not clearly appreciated on recent 05/13/2017 CT abdomen with contrast study. Areas of focal spot fatty sparing versus CT occult liver lesions are considerations. GALLBLADDER: Multiple gallstones. No gallbladder wall thickening or edema. No elicited Scherer sign per technologist's note COMMON BILE DUCT: Measures 4 mm. No stones. No dilatation. PANCREAS: Not clearly visualized due to obscuring bowel gas RIGHT KIDNEY: Measures 9.3 x 4.8 x 6.4cm. Normal echogenicity. No calculus, mass, or hydronephrosis. LEFT KIDNEY: Measures 12.0 x 5.6 x 6.5cm. Normal echogenicity. No calculus, mass, or hydronephrosis. SPLEEN: Normal in size and contour. No mass. AORTA: No aneurysmal dilatation. IVC: Unremarkable. OTHER FINDINGS: None. IMPRESSION: Gallstones without ancillary sonographic finding seen to suggest acute cholecystitis. No dilated ducts. Clinical follow-up recommended Mild fatty liver with 2 indeterminate right hepatic lobe hypoechoic lesions -not CT appreciated. Areas of focal spot fatty sparing versus CT occult liver lesions are considerations. Follow-up recommended. Consider MRI of the liver without with contrast for characterisation Comments: A preliminary report provided by Bruce
[2017-05-14] MEDS ORDERED: POLYETHYLENE GLYCOL 3350 17 GM/Dose PACKET PO SCH (12:00)
[2017-05-14] MEDS: Ciprofloxacin 400mg/200ml D5W 400 MG/200 ML BAG IVPB SCH (12:54)
--- NOTE | 2017-05-14 16:40 | CARD ---
APPROVED REPORT EKG Measurement Heart [id number] ME [id number] <Conclusion> Normal sinus rhythm Possible Left atrial enlargement Nonspecific T wave abnormality Abnormal ECG
--- NOTE | 2017-05-14 18:18 | CP.PCM.PN ---
<Neel Feliciano - Last Filed: 05/14/17 18:14> Subjective - Date & Time of Evaluation Date of Evaluation: 05/14/17 Time of Evaluation: 18:14 - Subjective Subjective: Patient has been seen and examined. Patient complained of fevers and chills overnight which improved post Tylenol administration. Patient also stated her LLQ pain has improved since yesterday. She denies any SOB, Vomiting, or chest pain. Patient states she has been constipated. Her last bowel movement was 1 week prior to admission. She has no appetite. Objective - Vital Signs/Intake and Output Vital Signs (last 24 hours): Temp Pulse Resp BP Pulse Ox 99.6 F 90 18 110/69 94 L 05/14/17 09:09 05/14/17 09:09 05/14/17 09:09 05/14/17 09:09 05/14/17 09:09 Intake and Output: 05/14/17 05/14/17 06:59 18:59 Intake Total 240 Balance 240 - Medications Medications: Current Medications Famotidine (Pepcid) 20 mg IVP DAILY [facility] Last Admin: 05/14/17 09:32 Dose: 20 mg Metronidazole (Flagyl) 500 mg in 100 mls @ 100 mls/hr IVPB Q8 [facility] PRN Reason: Protocol Last Admin: 05/14/17 13:01 Dose: 100 mls/hr Sodium Chloride (Sodium Chloride 0.9%) 1,000 mls @ 125 mls/hr IV .Q8H [facility] Last Admin: 05/14/17 17:29 Dose: 125 mls/hr Ciprofloxacin (Cipro 400mg/200ml Dsw) 400 mg in 200 mls @ 133.3 mls/hr IVPB Q12 [facility] PRN Reason: Protocol Stop: 05/15/17 11:31 Last Admin: 05/14/17 12:54 Dose: 133.3 mls/hr Morphine Sulfate (Morphine) 4 mg IVP Q4H PRN PRN Reason: Pain, moderate (4-7) Last Admin: 05/14/17 05:27 Dose: 4 mg Ondansetron HCl (Zofran Inj) 4 mg IVP Q4H PRN PRN Reason: Nausea/Vomiting Last Admin: 05/14/17 15:42 Dose: 4 mg Polyethylene Glycol (Miralax) 17 gm PO DAILY [facility] Last Admin: 05/14/17 12:54 Dose: 17 gm - Labs Labs: 05/14/17 09:50 05/14/17 09:50 PT 11.7 Seconds (9.9-11.8) 05/13/17 17:26 INR 1.08 (0.93-1.08) 05/13/17 17:26 APTT 26.3 Seconds (23.7-30.8) 05/13/17 17:26 - Constitutional Appears: No Acute Distress - Head Exam Head Exam: ATRAUMATIC, NORMOCEPHALIC - Eye Exam Eye Exam: EOMI - Neck Exam Neck Exam: absent: Lymphadenopathy - Respiratory Exam Respiratory Exam: Clear to Ausculation Bilateral. absent: Rales, Rhonchi, Wheezes, Stridor - Cardiovascular Exam Cardiovascular Exam: +S1, +S2. absent: JVD, Murmur - GI/Abdominal Exam GI & Abdominal Exam: Soft, Tenderness Additional comments: LLQ Tenderness - Neurological Exam Neurological Exam: Alert, Oriented x3 - Psychiatric Exam Psychiatric exam: Normal Affect, Normal Mood Assessment and Plan - Assessment and Plan (Free Text) Assessment: 61 year old female with a PMHx of endometrial cancer s/p total abdominal hysterectomy with bilateral salpingo oophorectomy & chemotherapy presented with sigmoid and descending diverticulitis. Plan: 1. Descending/Sigmoid Diverticulitis -GI/Surgery Consulted Recs appreciated -Start clear liquid Diet/Bowel Regimen per GI -Pepcid, Flagyl,Cipro -Morphine 4mg Q4 PRN for pain -IV Fluids -advance diet as tolerated - Outpatient GI F/U in 6 weeks for colonoscopy Patient seen, examined, and discussed with attending Neel Feliciano PGY1 Pager- <Jonathan Landa - Last Filed: 05/15/17 14:26> Objective - Vital Signs/Intake and Output Vital Signs (last 24 hours): Temp Pulse Resp BP Pulse Ox 99.2 F 104 H 21 121/75 100 05/15/17 07:57 05/15/17 07:57 05/15/17 07:57 05/15/17 07:57 05/15/17 07:57 Intake and Output: 05/15/17 05/15/17 06:59 18:59 Intake Total 120 320 Balance 120 320 - Medications Medications: Current Medications Famotidine (Pepcid) 20 mg IVP DAILY [facility] Last Admin: 05/15/17 10:37 Dose: 20 mg Metronidazole (Flagyl) 500 mg in 100 mls @ 100 mls/hr IVPB Q8 [facility] PRN Reason: Protocol Last Admin: 05/15/17 05:52 Dose: 100 mls/hr Sodium Chloride (Sodium Chloride 0.9%) 1,000 mls @ 125 mls/hr IV .Q8H [facility] Last Admin: 05/15/17 05:52 Dose: 125 mls/hr Morphine Sulfate (Morphine) 4 mg IVP Q4H PRN PRN Reason: Pain, moderate (4-7) Last Admin: 05/14/17 05:27 Dose: 4 mg Ondansetron HCl (Zofran Inj) 4 mg IVP Q4H PRN PRN Reason: Nausea/Vomiting Last Admin: 05/14/17 15:42 Dose: 4 mg Polyethylene Glycol (Miralax) 17 gm PO BID [facility] Last Admin: 05/15/17 10:37 Dose: 17 gm - Labs Labs: 05/15/17 10:30 05/15/17 10:40 PT 11.7 Seconds (9.9-11.8) 05/13/17 17:26 INR 1.08 (0.93-1.08) 05/13/17 17:26 APTT 26.3 Seconds (23.7-30.8) 05/13/17 17:26 Attending/Attestation - Attestation I have personally seen and examined this patient.: Yes I have fully participated in the care of the patient.: Yes I have reviewed all pertinent clinical information, including history, physical exam and plan: Yes Notes (Text): I have seen and examined patient at bedside. Briefly this is 61 year old female with history of endometrial cancer s/p PORFIRIO with B/L SO s/p chemo who was admitted for evaluation of acute diverticulitis. GI and surgery consult appreciated. Start CLD. Continue cipro and flagyl. Outpatient GI in 6 weeks recommended by GI. Upon discharge patient will follow with Dr Rosa. Dr Jonathan Landa
[2017-05-15] MEDS: metroNIDAZOLE IV 500 mg/100 ml 500 MG/100 ML BAG IVPB SCH ×3 (05:52→21:23)
[2017-05-15] MEDS: Sodium Chloride 0.9% 1,000 ML IV SCH ×2 (05:52→14:29)
--- NOTE | 2017-05-15 07:50 | CP.PCM.PN ---
Subjective - Date & Time of Evaluation Date of Evaluation: 05/15/17 Time of Evaluation: 07:46 - Subjective Subjective: General Surgery Progress Note Resident: Claire Attending: Chandana HPI: Pt seen and examined at bedside. No complaints at this time. Pain has improved. Tried to drink water yesterday but got nauseous. No appetite. +flatus/ -BM. Currently denies any N/V/D/CP/SOB. Objective - Vital Signs/Intake and Output Vital Signs (last 24 hours): Temp Pulse Resp BP Pulse Ox 99.6 F 90 18 110/69 94 L 05/14/17 09:09 05/14/17 09:09 05/14/17 09:09 05/14/17 09:09 05/14/17 09:09 Intake and Output: 05/15/17 05/15/17 06:59 18:59 Intake Total 120 80 Balance 120 80 - Medications Medications: Current Medications Famotidine (Pepcid) 20 mg IVP DAILY [facility] Last Admin: 05/14/17 09:32 Dose: 20 mg Metronidazole (Flagyl) 500 mg in 100 mls @ 100 mls/hr IVPB Q8 [facility] PRN Reason: Protocol Last Admin: 05/15/17 05:52 Dose: 100 mls/hr Sodium Chloride (Sodium Chloride 0.9%) 1,000 mls @ 125 mls/hr IV .Q8H [facility] Last Admin: 05/15/17 05:52 Dose: 125 mls/hr Ciprofloxacin (Cipro 400mg/200ml Dsw) 400 mg in 200 mls @ 133.3 mls/hr IVPB Q12 [facility] PRN Reason: Protocol Stop: 05/15/17 11:31 Last Admin: 05/14/17 12:54 Dose: 133.3 mls/hr Morphine Sulfate (Morphine) 4 mg IVP Q4H PRN PRN Reason: Pain, moderate (4-7) Last Admin: 05/14/17 05:27 Dose: 4 mg Ondansetron HCl (Zofran Inj) 4 mg IVP Q4H PRN PRN Reason: Nausea/Vomiting Last Admin: 05/14/17 15:42 Dose: 4 mg Polyethylene Glycol (Miralax) 17 gm PO DAILY [facility] Last Admin: 05/14/17 12:54 Dose: 17 gm - Labs Labs: 05/14/17 09:50 05/14/17 09:50 PT 11.7 Seconds (9.9-11.8) 05/13/17 17:26 INR 1.08 (0.93-1.08) 05/13/17 17:26 APTT 26.3 Seconds (23.7-30.8) 05/13/17 17:26 - Constitutional Appears: Well - Head Exam Head Exam: NORMAL INSPECTION - Eye Exam Eye Exam: EOMI - ENT Exam ENT Exam: Mucous Membranes Moist - Respiratory Exam Respiratory Exam: Clear to Ausculation Bilateral - Cardiovascular Exam Cardiovascular Exam: REGULAR RHYTHM - GI/Abdominal Exam GI & Abdominal Exam: Soft, Tenderness (LLQ/RLQ). absent: Distended, Rigid - Neurological Exam Neurological Exam: Alert, Awake, Oriented x3. absent: Altered - Psychiatric Exam Psychiatric exam: Normal Affect, Normal Mood - Skin Skin Exam: Normal Color Assessment and Plan - Assessment and Plan (Free Text) Assessment: 61 y/o AA Female with diverticulitis * NPO, plan to advance later today * Cipro/Flagyl * Pain: Tylenol, Morphine * GI PPX: Pepcid * IVF: NS @ [address] PGY-1
--- NOTE | 2017-05-15 08:12 | CP.PCM.PN ---
<Romeo Platt - Last Filed: 05/15/17 09:04> Subjective - Date & Time of Evaluation Date of Evaluation: 05/15/17 Time of Evaluation: 07:15 - Subjective Subjective: PGY5 GI Fellow Progress Note Patient seen and examined bedside this morning. The patient admits to slight nausea with broth yesterday but states she did not eat/drink much because she did not care for the food. Admits level of pain has decreased significantly. Still no BM. No vomiting, fever, chills. 12 system ROS performed and negative except where stated. Objective - Vital Signs/Intake and Output Vital Signs (last 24 hours): Temp Pulse Resp BP Pulse Ox 99.2 F 104 H 21 121/75 100 05/15/17 07:57 05/15/17 07:57 05/15/17 07:57 05/15/17 07:57 05/15/17 07:57 Intake and Output: 05/15/17 05/15/17 06:59 18:59 Intake Total 120 80 Balance 120 80 - Medications Medications: Current Medications Famotidine (Pepcid) 20 mg IVP DAILY [facility] Last Admin: 05/14/17 09:32 Dose: 20 mg Metronidazole (Flagyl) 500 mg in 100 mls @ 100 mls/hr IVPB Q8 [facility] PRN Reason: Protocol Last Admin: 05/15/17 05:52 Dose: 100 mls/hr Sodium Chloride (Sodium Chloride 0.9%) 1,000 mls @ 125 mls/hr IV .Q8H [facility] Last Admin: 05/15/17 05:52 Dose: 125 mls/hr Ciprofloxacin (Cipro 400mg/200ml Dsw) 400 mg in 200 mls @ 133.3 mls/hr IVPB Q12 [facility] PRN Reason: Protocol Stop: 05/15/17 11:31 Last Admin: 05/14/17 12:54 Dose: 133.3 mls/hr Morphine Sulfate (Morphine) 4 mg IVP Q4H PRN PRN Reason: Pain, moderate (4-7) Last Admin: 05/14/17 05:27 Dose: 4 mg Ondansetron HCl (Zofran Inj) 4 mg IVP Q4H PRN PRN Reason: Nausea/Vomiting Last Admin: 05/14/17 15:42 Dose: 4 mg Polyethylene Glycol (Miralax) 17 gm PO DAILY [facility] Last Admin: 05/14/17 12:54 Dose: 17 gm - Labs Labs: 05/14/17 09:50 05/14/17 09:50 PT 11.7 Seconds (9.9-11.8) 05/13/17 17:26 INR 1.08 (0.93-1.08) 05/13/17 17:26 APTT 26.3 Seconds (23.7-30.8) 05/13/17 17:26 - Constitutional Appears: Non-toxic, No Acute Distress - Eye Exam Eye Exam: EOMI, PERRL - ENT Exam ENT Exam: Mucous Membranes Moist - Respiratory Exam Respiratory Exam: Clear to Ausculation Bilateral. absent: Rales, Rhonchi, Wheezes - Cardiovascular Exam Cardiovascular Exam: RRR, +S1, +S2 - GI/Abdominal Exam GI & Abdominal Exam: Soft, Tenderness (LLQ, improved), Normal Bowel Sounds. absent: Distended, Firm, Guarding, Rigid, Organomegaly - Extremities Exam Extremities Exam: Normal Inspection. absent: Pedal Edema - Neurological Exam Neurological Exam: Alert, Awake, Oriented x3 - Psychiatric Exam Psychiatric exam: Normal Affect, Normal Mood - Skin Skin Exam: Dry, Warm Assessment and Plan - Assessment and Plan (Free Text) Assessment: Patient is a 61yo female with PMHx significant for endometrial cancer s/p TAHBSO and chemotherapy, sigmoid diverticulosis/itis who presents with abdominal pain. -Acute descending and sigmoid diverticulitis -Constipation -H/O Endometrial cancer Plan: -Uncomplicated diverticulitis with no abscess formation or perforation noted on CT with IV contrast -Cont IV Cipro/Flagyl -Analgesia and antiemetics PRN -Did not really attempt to eat; would maintain liquid diet today and advance for dinner if tolerating -Miralax 17g PO BID, titrate dose to 1BM/day -Patient will benefit from outpatient colonoscopy 6-8 weeks from resolution of acute illness -Case discussed with primary team <Tesfaye Donis - Last Filed: 05/15/17 09:30> Objective - Vital Signs/Intake and Output Vital Signs (last 24 hours): Temp Pulse Resp BP Pulse Ox 99.2 F 104 H 21 121/75 100 05/15/17 07:57 05/15/17 07:57 05/15/17 07:57 05/15/17 07:57 05/15/17 07:57 Intake and Output: 05/15/17 05/15/17 06:59 18:59 Intake Total 120 80 Balance 120 80 - Medications Medications: Current Medications Famotidine (Pepcid) 20 mg IVP DAILY [facility] Last Admin: 05/14/17 09:32 Dose: 20 mg Metronidazole (Flagyl) 500 mg in 100 mls @ 100 mls/hr IVPB Q8 [facility] PRN Reason: Protocol Last Admin: 05/15/17 05:52 Dose: 100 mls/hr Sodium Chloride (Sodium Chloride 0.9%) 1,000 mls @ 125 mls/hr IV .Q8H [facility] Last Admin: 05/15/17 05:52 Dose: 125 mls/hr Ciprofloxacin (Cipro 400mg/200ml Dsw) 400 mg in 200 mls @ 133.3 mls/hr IVPB Q12 [facility] PRN Reason: Protocol Stop: 05/15/17 11:31 Last Admin: 05/14/17 12:54 Dose: 133.3 mls/hr Morphine Sulfate (Morphine) 4 mg IVP Q4H PRN PRN Reason: Pain, moderate (4-7) Last Admin: 05/14/17 05:27 Dose: 4 mg Ondansetron HCl (Zofran Inj) 4 mg IVP Q4H PRN PRN Reason: Nausea/Vomiting Last Admin: 05/14/17 15:42 Dose: 4 mg Polyethylene Glycol (Miralax) 17 gm PO BID [facility] - Labs Labs: 05/14/17 09:50 05/14/17 09:50 PT 11.7 Seconds (9.9-11.8) 05/13/17 17:26 INR 1.08 (0.93-1.08) 05/13/17 17:26 APTT 26.3 Seconds (23.7-30.8) 05/13/17 17:26 Attending/Attestation - Attestation I have personally seen and examined this patient.: Yes I have fully participated in the care of the patient.: Yes I have reviewed all pertinent clinical information, including history, physical exam and plan: Yes Notes (Text): 05/15/17 09:28 61 year old female with with h/o endometrial ca s/p PORFIRIO/BSO and chemotherapy, prior h/o diverticulitis admitted with recurrent diverticulitis. 1. Acute diverticulitis Plan: -CT reviewed, Improving with antibiotics -advance diet as tolerated -no evidence of complications -recommend outpatient colonoscopy in 6-8 weeks -recommend 2 week course of antibiotics -pain control as needed -advance diet as tolerated -miralax bowel regimen -will sign off at this time
[2017-05-15] MEDS: POLYETHYLENE GLYCOL 3350 17 GM/Dose PACKET PO SCH ×3 (10:37→20:37)
[2017-05-15] MEDS: Ciprofloxacin 400mg/200ml D5W 400 MG/200 ML BAG IVPB SCH (10:37)
[2017-05-15 11:03] LABS: HEMOGLOBIN 9.7 gm/dL (12.0-16.0); MEAN CELL VOLUME 93.6 fL (80.0-105.0); MEAN CORPUSCULAR HGB CONC 33.1 g/dl (31.0-37.0); MEAN PLATELET VOLUME 9.5 fl (7.0-11.0); RBC 3.13 10^6/uL (3.5-6.1); RED CELL DISTRIBUTION WIDTH 12.7 % (11.5-14.5); WHITE BLOOD COUNT 9.3 10^3/ul (4.5-11.0)
[2017-05-15 11:03] LABS: ALB/GLOB RATIO 0.9 (1.1-1.8); ALBUMIN 3.4 g/dL (3.0-4.8); ALT/SGPT 30 U/L (7-56); AST/SGOT 28 U/L (15-39); BLOOD UREA NITROGEN 7 mg/dL (7-21); CALCIUM 8.1 mg/dL (8.4-10.5); GFR AFRICAN-AMERICAN > 60; GFR NON-AFRICAN AMERICAN > 60
[2017-05-15] MEDS ORDERED: Potassium Chloride 20 mEq ER Tab PO STA (11:40)
[2017-05-15] MEDS ORDERED: Ciprofloxacin 400mg/200ml D5W 400 MG/200 ML BAG IVPB SCH ×2 (11:45→22:00)
--- NOTE | 2017-05-15 15:54 | CP.PCM.PN ---
<Neel Feliciano - Last Filed: 05/15/17 15:50> Subjective - Date & Time of Evaluation Date of Evaluation: 05/15/17 Time of Evaluation: 15:51 - Subjective Subjective: Patient has been seen and examined. Patient denies any fevers or chills. Patient also stated her LLQ pain has improved since yesterday. She denies any SOB, Vomiting, or chest pain. She still has had no bowel movement or appetite. Objective - Vital Signs/Intake and Output Vital Signs (last 24 hours): Temp Pulse Resp BP Pulse Ox 99.2 F 104 H 21 121/75 100 05/15/17 07:57 05/15/17 07:57 05/15/17 07:57 05/15/17 07:57 05/15/17 07:57 Intake and Output: 05/15/17 05/15/17 06:59 18:59 Intake Total 120 320 Balance 120 320 - Medications Medications: Current Medications Famotidine (Pepcid) 20 mg IVP DAILY [facility] Last Admin: 05/15/17 10:37 Dose: 20 mg Metronidazole (Flagyl) 500 mg in 100 mls @ 100 mls/hr IVPB Q8 [facility] PRN Reason: Protocol Last Admin: 05/15/17 14:28 Dose: 100 mls/hr Sodium Chloride (Sodium Chloride 0.9%) 1,000 mls @ 125 mls/hr IV .Q8H [facility] Last Admin: 05/15/17 14:29 Dose: 125 mls/hr Ciprofloxacin (Cipro 400mg/200ml Dsw) 400 mg in 200 mls @ 133.3 mls/hr IVPB Q12 [facility] PRN Reason: Protocol Stop: 05/16/17 11:31 Morphine Sulfate (Morphine) 4 mg IVP Q4H PRN PRN Reason: Pain, moderate (4-7) Last Admin: 05/14/17 05:27 Dose: 4 mg Ondansetron HCl (Zofran Inj) 4 mg IVP Q4H PRN PRN Reason: Nausea/Vomiting Last Admin: 05/14/17 15:42 Dose: 4 mg Polyethylene Glycol (Miralax) 17 gm PO BID [facility] Last Admin: 05/15/17 10:37 Dose: 17 gm - Labs Labs: 05/15/17 10:30 05/15/17 10:40 PT 11.7 Seconds (9.9-11.8) 05/13/17 17:26 INR 1.08 (0.93-1.08) 05/13/17 17:26 APTT 26.3 Seconds (23.7-30.8) 05/13/17 17:26 - Constitutional Appears: Well, No Acute Distress - Head Exam Head Exam: ATRAUMATIC, NORMOCEPHALIC - Eye Exam Eye Exam: EOMI - Respiratory Exam Respiratory Exam: Clear to Ausculation Bilateral. absent: Rales, Rhonchi, Wheezes, Stridor - Cardiovascular Exam Cardiovascular Exam: +S1, +S2. absent: Murmur - GI/Abdominal Exam GI & Abdominal Exam: Soft Additional comments: LLQ Tenderness - Extremities Exam Extremities Exam: absent: Pedal Edema - Psychiatric Exam Psychiatric exam: Normal Affect, Normal Mood - Skin Skin Exam: Dry, Intact, Normal Color, Warm Assessment and Plan - Assessment and Plan (Free Text) Assessment: 61 year old female with a PMHx of endometrial cancer s/p total abdominal hysterectomy with bilateral salpingo oophorectomy & chemotherapy presented with sigmoid and descending diverticulitis. Plan: 1. Descending/Sigmoid Diverticulitis -GI/Surgery Consulted Recs appreciated -Advanced to Full liquid diet -Pepcid, Flagyl,Cipro -Morphine 4mg Q4 PRN for pain -IV Fluids -advance diet as tolerated - Outpatient GI F/U in 6 weeks for colonoscopy Patient seen, examined, and discussed with attending Neel Feliciano PGY-1 Pager - <Jonathan Landa B - Last Filed: 05/15/17 18:05> Objective - Vital Signs/Intake and Output Vital Signs (last 24 hours): Temp Pulse Resp BP Pulse Ox 99.6 F 83 20 125/85 98 05/15/17 17:31 05/15/17 17:31 05/15/17 17:31 05/15/17 17:31 05/15/17 17:31 Intake and Output: 05/15/17 05/15/17 06:59 18:59 Intake Total 120 320 Balance 120 320 - Medications Medications: Current Medications Famotidine (Pepcid) 20 mg IVP DAILY [facility] Last Admin: 05/15/17 10:37 Dose: 20 mg Metronidazole (Flagyl) 500 mg in 100 mls @ 100 mls/hr IVPB Q8 [facility] PRN Reason: Protocol Last Admin: 05/15/17 14:28 Dose: 100 mls/hr Ciprofloxacin (Cipro 400mg/200ml Dsw) 400 mg in 200 mls @ 133.3 mls/hr IVPB Q12 [facility] PRN Reason: Protocol Stop: 05/16/17 11:31 Potassium Chloride 20 meq/ (Dextrose/Sodium Chloride) 1,010 mls @ 100 mls/hr IV .Q10H6M [facility] Morphine Sulfate (Morphine) 4 mg IVP Q4H PRN PRN Reason: Pain, moderate (4-7) Last Admin: 05/14/17 05:27 Dose: 4 mg Ondansetron HCl (Zofran Inj) 4 mg IVP Q4H PRN PRN Reason: Nausea/Vomiting Last Admin: 05/14/17 15:42 Dose: 4 mg Polyethylene Glycol (Miralax) 17 gm PO BID [facility] Last Admin: 05/15/17 10:37 Dose: 17 gm - Labs Labs: 05/15/17 10:30 05/15/17 10:40 PT 11.7 Seconds (9.9-11.8) 05/13/17 17:26 INR 1.08 (0.93-1.08) 05/13/17 17:26 APTT 26.3 Seconds (23.7-30.8) 05/13/17 17:26 Attending/Attestation - Attestation I have personally seen and examined this patient.: Yes I have fully participated in the care of the patient.: Yes I have reviewed all pertinent clinical information, including history, physical exam and plan: Yes Notes (Text): I have seen and examined patient at bedside. Briefly this is 61 year old female with history of endometrial cancer s/p PORFIRIO with B/L SO s/p chemo who was admitted for evaluation of acute diverticulitis. Patient has been tolerating CLD. Advance to full liquids. Continue miralax prn. Continue cipro and flagyl. Outpatient colonoscopy in 6 weeks recommended by GI. Upon discharge patient will follow with Dr Rosa. Dr Jonathan Landa
[2017-05-15] MEDS ORDERED: Potassium Chloride 20 MEQ in Dextrose 5%/0.45% NS 1,000 ML IV SCH (17:30)
[2017-05-16] MEDS: metroNIDAZOLE IV 500 mg/100 ml 500 MG/100 ML BAG IVPB SCH (05:26)
--- NOTE | 2017-05-16 08:19 | CP.PCM.PN ---
Subjective - Date & Time of Evaluation Date of Evaluation: 05/16/17 Time of Evaluation: 08:17 - Subjective Subjective: SURGERY NOTE FOR DR. BERG 61F seen and examined at bedside. Patient states she feels well, denies pain, denies nausea or vomiting, denies fevers or chills. She is tolerating diet. Objective - Vital Signs/Intake and Output Vital Signs (last 24 hours): Temp Pulse Resp BP Pulse Ox 99.6 F 83 20 125/85 98 05/15/17 17:31 05/15/17 17:31 05/15/17 17:31 05/15/17 17:31 05/15/17 17:31 Intake and Output: 05/16/17 05/16/17 06:59 18:59 Intake Total 424 Balance 424 - Medications Medications: Current Medications Famotidine (Pepcid) 20 mg IVP DAILY [facility] Last Admin: 05/15/17 10:37 Dose: 20 mg Metronidazole (Flagyl) 500 mg in 100 mls @ 100 mls/hr IVPB Q8 [facility] PRN Reason: Protocol Last Admin: 05/16/17 05:26 Dose: 100 mls/hr Ciprofloxacin (Cipro 400mg/200ml Dsw) 400 mg in 200 mls @ 133.3 mls/hr IVPB Q12 [facility] PRN Reason: Protocol Stop: 05/16/17 11:31 Last Admin: 05/15/17 22:28 Dose: 133.3 mls/hr Potassium Chloride 20 meq/ (Dextrose/Sodium Chloride) 1,010 mls @ 100 mls/hr IV .Q10H6M [facility] Last Admin: 05/15/17 18:41 Dose: 100 mls/hr Morphine Sulfate (Morphine) 4 mg IVP Q4H PRN PRN Reason: Pain, moderate (4-7) Last Admin: 05/14/17 05:27 Dose: 4 mg Ondansetron HCl (Zofran Inj) 4 mg IVP Q4H PRN PRN Reason: Nausea/Vomiting Last Admin: 05/14/17 15:42 Dose: 4 mg Polyethylene Glycol (Miralax) 17 gm PO BID [facility] Last Admin: 05/15/17 20:37 Dose: Not Given - Labs Labs: 05/15/17 10:30 05/15/17 10:40 PT 11.7 Seconds (9.9-11.8) 07/11/17 17:26 INR 1.08 (0.93-1.08) 05/13/17 17:26 APTT 26.3 Seconds (23.7-30.8) 05/13/17 17:26 - Constitutional Appears: Non-toxic, No Acute Distress - Head Exam Head Exam: ATRAUMATIC - ENT Exam ENT Exam: Mucous Membranes Moist - Respiratory Exam Respiratory Exam: Clear to Ausculation Bilateral, NORMAL BREATHING PATTERN - Cardiovascular Exam Cardiovascular Exam: REGULAR RHYTHM, +S1, +S2 - GI/Abdominal Exam GI & Abdominal Exam: Soft. absent: Distended, Firm, Guarding, Rigid, Tenderness , Rebound - Neurological Exam Neurological Exam: Alert, Awake Assessment and Plan - Assessment and Plan (Free Text) Assessment: 61F presents with diverticulitis resolved Plan: - Patient tolerating diet, denies pain - vitals/labs stable - Clear for DC with antibiotics and home soft diet Discussed with Dr Chandana Sotelo, PGY2
[2017-05-16 08:57] VITALS: BP 118/81; PULSE 70; RESP 16; TEMP 98.1; O2SAT 99
--- NOTE | 2017-05-16 10:35 | CP.PCM.DIS ---
<Neel Feliciano - Last Filed: 05/16/17 10:31> Provider - Provider Date of Admission: 05/13/17 22:56 Attending physician: Jonathan Landa MD Primary care physician: Stefan Guevara MD Consults: ID - Dr. Martínez Surg - Dr. Ellington GI - Dr. Camacho Time Spent in preparation of Discharge (in minutes): 35 Hospital Course - Lab Results Lab Results: Most Recent Lab Values WBC 9.3 10^3/ul (4.5-11.0) 05/15/17 10:30 RBC 3.13 10^6/uL (3.5-6.1) L 05/15/17 10:30 Hgb 9.7 gm/dL (12.0-16.0) L 05/15/17 10:30 Hct 29.3 % (36.0-48.0) L 05/15/17 10:30 MCV 93.6 fL (80.0-105.0) 05/15/17 10:30 MCH 31.0 pg (25.0-35.0) 05/15/17 10:30 MCHC 33.1 g/dl (31.0-37.0) 05/15/17 10:30 RDW 12.7 % (11.5-14.5) 05/15/17 10:30 Plt Count 230 10^3/uL (120.0-450.0) 05/15/17 10:30 MPV 9.5 fl (7.0-11.0) 05/15/17 10:30 Gran % 72.9 % (50.0-68.0) H 05/13/17 17:26 Lymph % (Auto) 18.8 % (22.0-35.0) L 05/13/17 17:26 [place] % (Auto) 7.9 % (1.0-6.0) H 05/13/17 17:26 Eos % (Auto) 0.2 % (1.5-5.0) L 05/13/17 17:26 Baso % (Auto) 0.2 % (0.0-3.0) 05/13/17 17:26 Gran # 8.83 (1.4-6.5) H 05/13/17 17:26 Lymph # 2.3 (1.2-3.4) 05/13/17 17:26 [place] # 1.0 (0.1-0.6) H 05/13/17 17:26 Eos # 0.0 (0.0-0.7) 05/13/17 17: Baso # 0.03 K/mm3 (0.0-2.0) 05/13/17 17: PT 11.7 Seconds (9.9-11.8) 05/13/17 17: INR 1.08 (0.93-1.08) 05/13/17 17: APTT 26.3 Seconds (23.7-30.8) 05/13/17 17:26 Sodium 135 mmol/L (132-148) 05/15/17 10:40 Potassium 3.0 mmol/L (3.6-5.0) L 05/15/17 10:40 Chloride 102 mmol/L (98-107) 05/15/17 10:40 Carbon Dioxide 23 mmol/L (21-33) 05/15/17 10:40 Anion Gap 13 (10-20) 05/15/17 10:40 BUN 7 mg/dL (7-21) 05/15/17 10:40 Creatinine 0.5 mg/dL (0.5-1.4) 05/15/17 10:40 Est GFR ( Amer) > 60 05/15/17 10:40 Est GFR (Non-Af Amer) > 60 05/15/17 10:40 Random Glucose 169 mg/dL (70-110) H 05/15/17 10:40 Calcium 8.1 mg/dL (8.4-10.5) L 05/15/17 10:40 Total Bilirubin 0.7 mg/dL (0.2-1.3) 05/15/17 10:40 AST 28 U/L (15-39) 05/15/17 10:40 ALT 30 U/L (7-56) 05/15/17 10:40 Alkaline Phosphatase 91 U/L (38-133) 05/15/17 10:40 Total Protein 7.0 g/dL (5.8-8.3) 05/15/17 10:40 Albumin 3.4 g/dL (3.0-4.8) 05/15/17 10:40 Globulin 3.6 gm/dL 05/15/17 10:40 Albumin/Globulin Ratio 0.9 (1.1-1.8) L 05/15/17 10:40 Amylase 68 U/L (35-125) 05/13/17 17:26 Lipase 30 U/L (23-300) 05/13/17 17:26 Urine Color Yellow (YELLOW) 05/13/17 20:50 Urine Appearance Clear (CLEAR) 05/13/17 20:50 Urine pH 7.0 (4.7-8.0) 05/13/17 20:50 Ur Specific [place] 1.010 (1.005-1.035) 05/13/17 20:50 Urine Protein Negative mg/dL (<30 mg/dL) 05/13/17 20:50 Urine Glucose (UA) Negative mg/dL (NEGATIVE) 05/13/17 20:50 Urine Ketones Negative mg/dL (NEGATIVE) 05/13/17 20:50 Urine Blood Trace-intact (NEGATIVE) H 05/13/17 20:50 Urine Nitrate Negative (NEGATIVE) 05/13/17 20:50 Urine Bilirubin Negative (NEGATIVE) 05/13/17 20:50 Urine Urobilinogen 0.2 E.U./dL (<1 E.U./dL) 05/13/17 20:50 Ur Leukocyte Esterase Negative Mil[place]/uL (NEGATIVE) 05/13/17 20:50 Urine RBC 0 - 2 /hpf (0-2) 05/13/17 20:50 Urine WBC 0 - 2 /hpf (0-6) 05/13/17 20:50 Ur Epithelial Cells 3 - 4 /hpf (0-5) 05/13/17 20:50 - Hospital Course Hospital Course: Patient is 61 year old female with history of endometrial cancer s/p PORFIRIO with B/ L SO s/p chemo who presented with LLQ abdominal tenderness and was admitted for evaluation of acute diverticulitis. During her stay patient was advanced from NPO to full liquid diet. She will continue her outpatient treatment with Cipro and flagyl and soft food and continue miralax prn. GI recommended outpatient colonoscopy in 6 weeks.. Upon discharge patient will follow with Dr Rosa. Patient is agreeable with plan and medications. Studies during her stay our as follows: Chest X-Ray: No Active Disease Abd US: Gallstones TV US (rule out thrombus): no visualizations of Left Ovarian Vein Abd/Pelvis US: Diverticulitis in Sigmoid and Descending Colon - Date & Time of H&P Date of H&P: 05/16/17 Time of H&P: 10:35 Discharge Exam - Head Exam Head Exam: ATRAUMATIC, NORMOCEPHALIC - Neck Exam Additional comments: No Lymphadenopathy - Respiratory Exam Respiratory Exam: Clear to PA & Lateral, Rales, Rhonchi, Wheezes, Stridor - Cardiovascular Exam Cardiovascular Exam: RRR, +S1, +S2. absent: JVD - GI/Abdominal Exam GI & Abdominal Exam: Normal Bowel Sounds, Soft. absent: Tenderness - Extremities Exam Extremities exam: normal capillary refill - Neurological Exam Neurological exam: Alert, Oriented x3 - Psychiatric Exam Psychiatric exam: Normal Affect, Normal Mood Discharge Plan - Discharge Medications Prescriptions: Ciprofloxacin [Cipro] 500 mg PO BID #14 tab metroNIDAZOLE [Flagyl] 500 mg PO Q8H #21 tab - Follow Up Plan Condition: STABLE Disposition: HOME/ ROUTINE Instructions: Diverticulitis (DC) Additional Instructions: 1. Complete Antibiotic course of Ciprofloxacin and Flagyl 2. Full liquid diet. Advance diet slowly as tolerated. 3. Follow up with GI. Will need outpatient colonoscopy in 6-8 weeks. 4. Follow up with PMD in 1 week. Referrals: Srini Camacho MD, MD [Medical Doctor] - Stefan Guevara MD [Primary Care Provider] - <Jonathan Landa - Last Filed: 05/16/17 11:58> Provider - Provider Date of Admission: 05/13/17 22:56 Attending physician: Jonathan Landa MD Primary care physician: Stefan Guevara MD Hospital Course - Lab Results Lab Results: Most Recent Lab Values WBC 9.3 10^3/ul (4.5-11.0) 05/15/17 10:30 RBC 3.13 10^6/uL (3.5-6.1) L 05/15/17 10:30 Hgb 9.7 gm/dL (12.0-16.0) L 05/15/17 10:30 Hct 29.3 % (36.0-48.0) L 05/15/17 10:30 MCV 93.6 fL (80.0-105.0) 05/15/17 10:30 MCH 31.0 pg (25.0-35.0) 05/15/17 10:30 MCHC 33.1 g/dl (31.0-37.0) 05/15/17 10:30 RDW 12.7 % (11.5-14.5) 05/15/17 10:30 Plt Count 230 10^3/uL (120.0-450.0) 05/15/17 10:30 MPV 9.5 fl (7.0-11.0) 05/15/17 10:30 Gran % 72.9 % (50.0-68.0) H 05/13/17 17:26 Lymph % (Auto) 18.8 % (22.0-35.0) L 05/13/17 17:26 [place] % (Auto) 7.9 % (1.0-6.0) H 05/13/17 17:26 Eos % (Auto) 0.2 % (1.5-5.0) L 05/13/17 17:26 Baso % (Auto) 0.2 % (0.0-3.0) 05/13/17 17:26 Gran # 8.83 (1.4-6.5) H 05/13/17 17:26 Lymph # 2.3 (1.2-3.4) 05/13/17 17: [place] # 1.0 (0.1-0.6) H 05/13/17 17:26 Eos # 0.0 (0.0-0.7) 05/13/17 17: Baso # 0.03 K/mm3 (0.0-2.0) 05/13/17 17:26 PT 11.7 Seconds (9.9-11.8) 05/13/17 17: INR 1.08 (0.93-1.08) 05/13/17 17: APTT 26.3 Seconds (23.7-30.8) 05/13/17 17:26 Sodium 135 mmol/L (132-148) 05/15/17 10:40 Potassium 3.0 mmol/L (3.6-5.0) L 05/15/17 10:40 Chloride 102 mmol/L (98-107) 05/15/17 10:40 Carbon Dioxide 23 mmol/L (21-33) 05/15/17 10:40 Anion Gap 13 (10-20) 05/15/17 10:40 BUN 7 mg/dL (7-21) 05/15/17 10:40 Creatinine 0.5 mg/dL (0.5-1.4) 05/15/17 10:40 Est GFR ( Amer) > 60 05/15/17 10:40 Est GFR (Non-Af Amer) > 60 05/15/17 10:40 Random Glucose 169 mg/dL (70-110) H 05/15/17 10:40 Calcium 8.1 mg/dL (8.4-10.5) L 05/15/17 10:40 Total Bilirubin 0.7 mg/dL (0.2-1.3) 05/15/17 10:40 AST 28 U/L (15-39) 05/15/17 10:40 ALT 30 U/L (7-56) 05/15/17 10:40 Alkaline Phosphatase 91 U/L (38-133) 05/15/17 10:40 Total Protein 7.0 g/dL (5.8-8.3) 05/15/17 10:40 Albumin 3.4 g/dL (3.0-4.8) 05/15/17 10:40 Globulin 3.6 gm/dL 05/15/17 10:40 Albumin/Globulin Ratio 0.9 (1.1-1.8) L 05/15/17 10:40 Amylase 68 U/L (35-125) 05/13/17 17:26 Lipase 30 U/L (23-300) 05/13/17 17:26 Urine Color Yellow (YELLOW) 05/13/17 20:50 Urine Appearance Clear (CLEAR) 05/13/17 20:50 Urine pH 7.0 (4.7-8.0) 05/13/17 20:50 Ur Specific [place] 1.010 (1.005-1.035) 05/13/17 20:50 Urine Protein Negative mg/dL (<30 mg/dL) 05/13/17 20:50 Urine Glucose (UA) Negative mg/dL (NEGATIVE) 05/13/17 20:50 Urine Ketones Negative mg/dL (NEGATIVE) 05/13/17 20:50 Urine Blood Trace-intact (NEGATIVE) H 05/13/17 20:50 Urine Nitrate Negative (NEGATIVE) 05/13/17 20:50 Urine Bilirubin Negative (NEGATIVE) 05/13/17 20:50 Urine Urobilinogen 0.2 E.U./dL (<1 E.U./dL) 05/13/17 20:50 Ur Leukocyte Esterase Negative [place]/uL (NEGATIVE) 05/13/17 20:50 Urine RBC 0 - 2 /hpf (0-2) 05/13/17 20:50 Urine WBC 0 - 2 /hpf (0-6) 05/13/17 20:50 Ur Epithelial Cells 3 - 4 /hpf (0-5) 05/13/17 20:50 Attending/Attestation - Attestation I have personally seen and examined this patient.: Yes I have fully participated in the care of the patient.: Yes I have reviewed all pertinent clinical information, including history, physical exam and plan: Yes Notes (Text): I have seen and examined patient at bedside. Briefly this is 61 year old female with history of endometrial cancer s/p PORFIRIO with B/L SO s/p chemo who was admitted for evaluation of acute diverticulitis. Patient has been tolerating diet without any problem. Continue miralax prn. Patient is cleared for discharge from GI and surgery. Will discharge patient on PO antibiotics. Outpatient colonoscopy in 6 weeks recommended by GI. Upon discharge patient will follow with Dr Rosa. Dr Jonathan Landa
== END 2017-05-16 10:13 | disposition home or self-care (01) | DRG 392 ==
LOC: ED 16:25 → ERH 22:56 → 5RNO 05-14 00:44
PROVIDERS: ADMIT Hospitalist; ATTEND Hospitalist
DX: K57.32 Diverticulitis of large intestine without perforation or abscess without bleeding (principal); K21.9 Gastro-esophageal reflux disease without esophagitis; K80.20 Calculus of gallbladder without cholecystitis without obstruction; K59.00 Constipation, unspecified; Z72.0 Tobacco use; Z90.49 Acquired absence of other specified parts of digestive tract; Z90.710 Acquired absence of both cervix and uterus; Z85.42 Personal history of malignant neoplasm of other parts of uterus; Z92.21 Personal history of antineoplastic chemotherapy; Z80.0 Family history of malignant neoplasm of digestive organs; Z80.3 Family history of malignant neoplasm of breast; Z80.7 Family history of other malignant neoplasms of lymphoid, hematopoietic and related tissues; Z80.8 Family history of malignant neoplasm of other organs or systems; Z90.722 Acquired absence of ovaries, bilateral

== ENCOUNTER 2018-11-09 10:25 | Day surgery (SDC) | payer BC ==
[2018-11-09] MEDS ORDERED: Sodium Chloride 0.9% 1,000 ML IV SCH (10:45)
[2018-11-09] MEDS ORDERED: Midazolam 2 MG/2 ML VIAL ONE (12:43)
[2018-11-09] MEDS ORDERED: Propofol 10 mg/ml Inj (20 ML) ONE ×2 (12:43→12:49)
[2018-11-09 14:19] VITALS: RESP 16
[2018-11-09 16:03] VITALS: BP 127/78; PULSE 77; TEMP 98.5; O2SAT 97
== END 2018-11-09 15:21 | disposition home or self-care (01) ==
LOC: ENDO 10:25
PROVIDERS: ATTEND Internal Medicine Gastroenterology
DX: D12.2 Benign neoplasm of ascending colon (principal); K62.1 Rectal polyp; K57.30 Diverticulosis of large intestine without perforation or abscess without bleeding; K29.50 Unspecified chronic gastritis without bleeding; B96.81 Helicobacter pylori [H. pylori] as the cause of diseases classified elsewhere; K44.9 Diaphragmatic hernia without obstruction or gangrene; K64.8 Other hemorrhoids; D50.9 Iron deficiency anemia, unspecified; Z85.89 Personal history of malignant neoplasm of other organs and systems
CPT/HCPCS: 43239; 45380; 45385; 88305; 88312; 88342; J2001; J2250; J2704; J7030; J7040

== ENCOUNTER 2019-02-03 14:22 | Inpatient (IN) | payer BC ==
[2019-02-03 14:42] VITALS: BMI 32.9
[2019-02-03] MEDS ORDERED: Sodium Chloride 0.9% 500 ML IV STA (14:58)
--- NOTE | 2019-02-03 15:06 | ED PDOC ---
Arrival/HPI - General Chief Complaint: Abdominal Pain Time Seen by Provider: 02/03/19 14:53 Historian: Patient - History of Present Illness Narrative History of Present Illness (Text): 02/03/19 15:09 63 F with pmh diverticulitis, and endometrial Ca. s/p total hysterectomy presents for evaluation of abdomen pain since last night. Patient was advised by her inseminator to present to the hospital this morning. Patient denies any fevers, chills, headache, dizziness, chest pain, shortness of breath, dyspnea on exertion, cough, diaphoresis, nausea, vomiting, diarrhea, back pain, neck pain, or any other complaint. Calender Tender: Dr. Arrieta Time/Duration: Prior to Arrival Symptom Onset: Sudden Symptom Course: Unchanged Activities at Onset: Light Context: Home Past Medical History - Provider Review Nursing Documentation Reviewed: Yes - Infectious Disease Hx of Infectious Diseases: None - Cardiac Hx Cardiac Disorders: No - Pulmonary Hx Respiratory Disorders: No - Neurological Hx Neurological Disorder: No - HEENT Hx HEENT Disorder: No - Renal Hx Renal Disorder: No - Endocrine/Metabolic Hx Endocrine Disorders: No - Hematological/Oncological Hx Blood Disorders: Yes Hx Blood Transfusions: Yes (OVER 20 YRS AGO) - Integumentary Hx Dermatological Disorder: No - Musculoskeletal/Rheumatological Hx Musculoskeletal Disorders: Yes - Gastrointestinal Hx Gastrointestinal Disorders: Yes Hx Diverticulitis: Yes Hx Gastroesophageal Reflux: Yes Other/Comment: H Pylori, gallstones - Genitourinary/Gynecological Hx Genitourinary Disorders: No - Psychiatric Hx Psychophysiologic Disorder: No Hx Substance Use: No - Surgical History Hx Hysterectomy: Yes - Anesthesia Hx Anesthesia Reactions: Yes (HEADACHE) Hx Malignant Hyperthermia: No - Suicidal Assessment Feels Threatened In Home Enviroment: No Family/Social History - Physician Review Nursing Documentation Reviewed: Yes Family/Social History: Unknown Family HX Smoking Status: Former Smoker Hx Alcohol Use: Yes (SOCIALLY) Hx Substance Use: No Allergies/Home Meds Allergies/Adverse Reactions: Allergies No Known Allergies Allergy (Verified 02/03/19 14:44) Home Medications: Home Meds Medication Instructions Recorded Confirmed Doxycycline Hyclate [Vibramycin] 1 tab PO BID 02/03/19 02/03/19 Pantoprazole Sodium [Protonix] 40 mg PO DAILY 02/03/19 02/03/19 metroNIDAZOLE [Flagyl] 500 mg PO TID 02/03/19 02/03/19 Review of Systems - Physician Review All systems were reviewed & negative as marked: Yes - Review of Systems Constitutional: Normal Eyes: Normal ENT: Normal Respiratory: Normal Cardiovascular: Normal Gastrointestinal: Abdominal Pain Genitourinary Female: Normal Musculoskeletal: Normal Skin: Normal Neurological: Normal Endocrine: Normal Hemo/Lymphatic: Normal Psychiatric: Normal Physical Exam Vital Signs Reviewed: Yes Vital Signs Temp Pulse Resp BP Pulse Ox 02/03/19 14:43 98.9 F 115 H 18 144/94 H 96 Temperature: Afebrile Blood Pressure: Normal Pulse: Tachycardic Respiratory Rate: Normal Appearance: Positive for: Well-Appearing, Non-Toxic, Comfortable Pain Distress: Mild Mental Status: Positive for: Alert and Oriented X 3 - Systems Exam Head: Present: Atraumatic, Normocephalic Pupils: Present: PERRL Extroacular Muscles: Present: EOMI Conjunctiva: Present: Normal Mouth: Present: Moist Mucous Membranes Neck: Present: Normal Range of Motion Respiratory/Chest: Present: Clear to Auscultation, Good Air Exchange. No: Respiratory Distress, Accessory Muscle Use Cardiovascular: Present: Regular Rate and Rhythm, Normal S1, S2. No: Murmurs Abdomen: Present: Tenderness (Lower quandrant suprapubic ). No: Distention, Peritoneal Signs Back: Present: Normal Inspection Upper Extremity: Present: Normal Inspection. No: Cyanosis, Edema Lower Extremity: Present: Normal Inspection. No: Edema Neurological: Present: GCS=15, CN II-XII Intact, Speech Normal Skin: Present: Warm, Dry, Normal Color. No: Rashes Psychiatric: Present: Alert, Oriented x 3, Normal Insight, Normal Concentration Medical Decision Making ED Course and Treatment: ro diverticultiis 02/03/19 15:07 Impression: 63 F presents for evaluation of abdomen pain since last night Plan: -- Labs -- Abd& Pelvis CT -- Tylenol -- UA -- Reassess and disposition Prior Visits: Notes and results from previous visits were reviewed. Progress Notes: 02/03/19 15:07 EKG shows sinus tachycardia at 106 BPM , no acute ST/T wave abnormalities. Interpreted by me. 02/03/19 17:28 labs show leukcytosis. empiric antibiotics given. persistent pain. accepted by hosptialist. seen by gi bedside. - RAD Interpretation Narrative RAD Interpretations (Text): 02/03/19 17:25 CT Abdomen and Pelvis with contrast Acute sigmoid diverticulitis. No drainable collection, loculated air or free air identified. The distribution is similar to that seen on the prior study. Less severe inflammatory changes noted. Cholelithiasis without CT evidence of acute cholecystitis. Radiology Orders: 02/03/19 15:00 ABD & PELVIS IV CONTRAST ONLY [CT] Stat Management Services Technician: Radiologist - Medication Orders Current Medication Orders: Sodium Chloride (Sodium Chloride 0.9%) 500 mls @ 1,000 mls/hr IV .Q30M STA Stop: 02/03/19 15:27 Discontinued Medications Acetaminophen (Tylenol 325mg Tab) 975 mg PO STAT STA Stop: 02/03/19 15:02 - Scribe Statement The provider has reviewed the documentation as recorded by the Sidney Asif All medical record entries made by the Kendraibalyx were at my direction and personally dictated by me. I have reviewed the chart and agree that the record accurately reflects my personal performance of the history, physical exam, medical decision making, and the department course for this patient. I have also personally directed, reviewed, and agree with the discharge instructions and disposition. Disposition/Present on Arrival - Present on Arrival Any Indicators Present on Arrival: No History of DVT/PE: No History of Uncontrolled Diabetes: No Urinary Catheter: No History of Decub. Ulcer: No History Surgical Site Infection Following: None - Disposition Have Diagnosis and Disposition been Completed?: Yes Diagnosis: Diverticulitis Disposition: HOSPITALIZED Disposition Time: 15:00 Condition: STABLE Forms: [employer] (Malay)
[2019-02-03 15:21] LABS: BASO # 0.03 K/mm3 (0.0-2.0); BASO % 0.2 % (0.0-3.0); EOS % 0.2 % (1.5-5.0); HEMOGLOBIN 12.5 g/dL (12.0-16.0); LYMPH # 2.8 (1.2-3.4); LYMPH % 20.1 % (22.0-35.0); MEAN CELL VOLUME 95.8 fl (80.0-105.0); MEAN CORPUSCULAR HEMOGLOBIN 30.6 pg (25.0-35.0); MEAN PLATELET VOLUME 9.9 fl (7.0-11.0); MONO # 0.8 (0.1-0.6); MONO % 5.7 % (1.0-6.0); RBC 4.08 10^6/uL (3.5-6.1); RED CELL DISTRIBUTION WIDTH 13.7 % (11.5-14.5); WHITE BLOOD COUNT 13.9 10^3/uL (4.5-11.0)
[2019-02-03 15:28] LABS: INR 1.36; PROTHROMBIN TIME 15.1 SECONDS (9.4-12.5)
[2019-02-03 15:35] LABS: ALB/GLOB RATIO 0.9 (1.1-1.8); ALBUMIN 3.9 g/dL (3.0-4.8); ALT/SGPT 29 U/L (7-56); AST/SGOT 38 U/L (14-36); BLOOD UREA NITROGEN 14 mg/dL (7-21); GFR NON-AFRICAN AMERICAN > 60; LIPASE 36 U/L (23-300)
[2019-02-03] MEDS ORDERED: Iohexol 350 MG/100 ML VIAL ONE (16:17)
[2019-02-03 17:20] LABS: PH,URINE 6.5 (4.7-8.0); URINE APPEARANCE CLEAR (CLEAR); URINE BILIRUBIN NEGATIVE (NEGATIVE); URINE BLOOD NEGATIVE (NEGATIVE); URINE COLOR YELLOW (YELLOW); URINE GLUCOSE (UA) NEGATIVE (NEGATIVE); URINE LEUKOCYTE ESTERASE SMALL Leu/uL (NEGATIVE); URINE PROTEIN TRACE mg/dL (<30 mg/dL); URINE UROBILINOGEN 0.2 E.U./dL (<1 E.U./dL)
--- NOTE | 2019-02-03 17:21 | CT ---
Date of service: 02/03/2019 PROCEDURE: CT Abdomen and Pelvis with contrast HISTORY: lower abd pain/left sided h/o of diverticulitis COMPARISON: 05/13/2017. TECHNIQUE: Intravenous contrast dose: 100 cc Omnipaque 350. Radiation dose: Total exam DLP = <inf_radiation_dlp> mGy-cm. This CT exam was performed using one or more of the following dose reduction techniques: Automated exposure control, adjustment of the mA and/or kV according to patient size, and/or use of iterative reconstruction technique. FINDINGS: LOWER THORAX: Small hiatal hernia. LIVER: Unremarkable. No gross lesion or ductal dilatation. GALLBLADDER AND BILE DUCTS: Cholelithiasis without CT evidence of acute cholecystitis. Similar findings seen previously. PANCREAS: Unremarkable. No gross lesion or ductal dilatation. SPLEEN: Unremarkable. ADRENALS: Unremarkable. No mass. KIDNEYS AND URETERS: Unremarkable. No hydronephrosis. No solid mass. VASCULATURE: Unremarkable. No aortic aneurysm. No atherosclerotic calcification or mural plaque present. BOWEL: Acute sigmoid diverticulitis. Distribution similar to that seen previously. The findings are slightly less severe. Sparing of the rectum. More proximally the descending colon demonstrates diverticulosis without an acute inflammatory component. APPENDIX: A normal appendix is not visible. PERITONEUM: Small volume free fluid in the pelvis and lower abdomen. No free air. LYMPH NODES: Unremarkable. No enlarged lymph nodes. BLADDER: Unremarkable. REPRODUCTIVE: Unremarkable. BONES: No acute fracture. OTHER FINDINGS: Anterior midline periumbilical hernia containing fat only. IMPRESSION: Acute sigmoid diverticulitis. No drainable collection, loculated air or free air identified. The distribution is similar to that seen on the prior study. Less severe inflammatory changes noted. Cholelithiasis without CT evidence of acute cholecystitis.
[2019-02-03] MEDS ORDERED: Piperacillin/Tazobact 3.375 gm 100 ML IVPB STA (17:24)
[2019-02-03 17:33] LABS: URINE RBC 0 - 2 /hpf (0-2)
--- NOTE | 2019-02-03 18:34 | CP.PCM.HP ---
<Heather Bright - Last Filed: 02/03/19 18:27> History of Present Illness - History of Present Illness History of Present Illness: Heather Bright, PGY1 Hospital H&P This is a 63 year old female with PMH of diverticulitis (last hospitalization 2 years ago) and endometrial CA s/p total hysterectomy and B/L salpingectomy presenting to the hospital for one day history of LLQ abdominal pain. Pain is describe as sharp, constant, rated 9/10, radiating to the left back and associated with nausea and 6 episodes of NBNB vomiting last night. Pain started while at rest last night and her last BM this morning was loose. She admits to loose BM's since starting H. pylori antibiotics 2 weeks ago. Her recent EGD in 11/2018 showed chronic gastritis without dysplasia and H. Pylori. Her recent colonoscopy at the same time showed internal hemorrhoids and a single hyperplastic polyp. She was told by her GI doctor to come to the hospital today for her symptoms. She currently denies CP, SOB, n/v/d/c, urinary complaints, urinary complaints, numbness, tingling, swelling, recent travel, sickness, lifestyle change, diet change, fevers and chills. 12 point ROS noted here, otherwise unremarkable. PMD: Dr. Le GI: Dr. Arrieta PMH: diverticulitis (last hospitalization 2 years ago) and endometrial CA s/p total hysterectomy and B/L salpingectomy SH: former smoker, denies drugs and alcohol Sx: appendectomy in the , hysterectomy in 2013 FH: father had esophageal cancer, sister had breast cancer and multiple myeloma All: NKDA Meds: flagyl/doxycycline/peptobismal for H.pylori. Protonix and vitamin D. Present on Admission - Present on Admission Any Indicators Present on Admission: No Past Patient History - Infectious Disease Hx of Infectious Diseases: None - Past Social History Smoking Status: Former Smoker - CARDIAC Hx Cardiac Disorders: No - PULMONARY Hx Respiratory Disorders: No - NEUROLOGICAL Hx Neurological Disorder: No - HEENT Hx HEENT Problems: No - RENAL Hx Chronic Kidney Disease: No - ENDOCRINE/METABOLIC Hx Endocrine Disorders: No - HEMATOLOGICAL/ONCOLOGICAL Hx Blood Disorders: Yes Hx Blood Transfusions: Yes (OVER 20 YRS AGO) - INTEGUMENTARY Hx Dermatological Problems: No - MUSCULOSKELETAL/RHEUMATOLOGICAL Hx Musculoskeletal Disorders: Yes - GASTROINTESTINAL Hx Gastrointestinal Disorders: Yes Hx Diverticulitis: Yes Hx Gastroesophageal Reflux: Yes Other/Comment: H Pylori, gallstones - GENITOURINARY/GYNECOLOGICAL Hx Genitourinary Disorders: No - PSYCHIATRIC Hx Psychophysiologic Disorder: No Hx Substance Use: No - SURGICAL HISTORY Hx Hysterectomy: Yes - ANESTHESIA Hx Anesthesia Reactions: Yes (HEADACHE) Hx Malignant Hyperthermia: No Meds Allergies/Adverse Reactions: Allergies Allergy/AdvReac Type Severity Reaction Status Date / Time No Known Allergies Allergy Verified 02/03/19 21:00 Physical Exam - Constitutional Appears: No Acute Distress - Head Exam Head Exam: ATRAUMATIC, NORMAL INSPECTION - Eye Exam Eye Exam: EOMI Pupil Exam: NORMAL ACCOMODATION - ENT Exam ENT Exam: Mucous Membranes Moist - Neck Exam Neck exam: Positive for: Normal Inspection - Respiratory Exam Respiratory Exam: Clear to Auscultation Bilateral. absent: Accessory Muscle Use, Wheezes, Respiratory Distress - Cardiovascular Exam Cardiovascular Exam: REGULAR RHYTHM, +S1, +S2 - GI/Abdominal Exam GI & Abdominal Exam: Normal Bowel Sounds, Soft. absent: Distended, Firm, Guarding Additional comments: LLQ tenderness appreciated - Extremities Exam Extremities exam: Positive for: pedal pulses present. Negative for: calf tenderness, pedal edema, tenderness - Back Exam Back exam: absent: CVA tenderness (L), CVA tenderness (R) - Neurological Exam Neurological exam: Alert, CN II-XII Intact, Oriented x3 - Skin Skin Exam: Normal Color, Warm Results - Vital Signs Recent Vital Signs: Last Vital Signs Temp 98.9 F 02/03/19 14:43 Pulse 86 02/03/19 17:43 Resp 18 02/03/19 17:43 BP 138/75 02/03/19 17:43 Pulse Ox 96 02/03/19 17:43 - Labs Result Diagrams: 02/03/19 15:00 02/03/19 15:00 Labs: Laboratory Results - last 24 hr 02/03/19 02/03/19 02/03/19 15:00 15:00 15:00 WBC 13.9 H RBC 4.08 Hgb 12.5 Hct 39.1 MCV 95.8 MCH 30.6 MCHC 32.0 RDW 13.7 Plt Count 339 MPV 9.9 Neut % (Auto) 73.8 H Lymph % (Auto) 20.1 L [place] % (Auto) 5.7 Eos % (Auto) 0.2 L Baso % (Auto) 0.2 Lymph # (Auto) 2.8 [place] # (Auto) 0.8 H Eos # (Auto) 0.0 Baso # (Auto) 0.03 Absolute Neuts (auto) 10.29 H PT 15.1 H INR 1.36 APTT 32.0 Sodium 139 Potassium 3.8 Chloride 102 Carbon Dioxide 27 Anion Gap 14 BUN 14 Creatinine 0.5 L Est GFR ( Amer) > 60 Est GFR (Non-Af Amer) > 60 Random Glucose 101 Calcium 9.0 Magnesium 2.1 Total Bilirubin 0.4 AST 38 H D ALT 29 Alkaline Phosphatase 87 Total Protein 8.2 Albumin 3.9 Globulin 4.2 Albumin/Globulin Ratio 0.9 L Lipase 36 Urine Color Urine Appearance Urine pH Ur Specific [place] Urine Protein Urine Glucose (UA) Urine Ketones Urine Blood Urine Nitrate Urine Bilirubin Urine Urobilinogen Ur Leukocyte Esterase Urine RBC Urine WBC Ur Epithelial Cells 02/03/19 16:55 WBC RBC Hgb Hct MCV MCH MCHC RDW Plt Count MPV Neut % (Auto) Lymph % (Auto) [place] % (Auto) Eos % (Auto) Baso % (Auto) Lymph # (Auto) [place] # (Auto) Eos # (Auto) Baso # (Auto) Absolute Neuts (auto) PT INR APTT Sodium Potassium Chloride Carbon Dioxide Anion Gap BUN Creatinine Est GFR ( Amer) Est GFR (Non-Af Amer) Random Glucose Calcium Magnesium Total Bilirubin AST ALT Alkaline Phosphatase Total Protein Albumin Globulin Albumin/Globulin Ratio Lipase Urine Color Yellow Urine Appearance Clear Urine pH 6.5 Ur Specific [place] 1.020 Urine Protein Trace H Urine Glucose (UA) Negative Urine Ketones Negative Urine Blood Negative Urine Nitrate Positive H Urine Bilirubin Negative Urine Urobilinogen 0.2 Ur Leukocyte Esterase Small H Urine RBC 0 - 2 Urine WBC 1 - 3 Ur Epithelial Cells 4 - 5 Assessment & Plan - Assessment and Plan (Free Text) Assessment: This is a 63 year old female with PMH of diverticulitis (last hospitalization 2 years ago) and endometrial CA s/p total hysterectomy and B/L salpingectomy presenting to the hospital for one day history of LLQ abdominal pain. Patient admitted for sigmoid diverticulitis. Plan: Sigmoid Diverticulitis: -CTAP 02/03 showed acute sigmoid diverituclitis and cholelithiasis without evidence of acute cholecystitis -afebrile, elevated WBC -rocephin and flagyl day 1 -CLD -zofran prn -morphine prn -NS @ 100cc -stool/blood/urine/c diff culture -GI on consult, Dr. Arrieta Hx of endometrial CA -s/p total hysterectomy and B/L salpingectomy -s/p 8 round chemotherapy -in remission per patient -patient states she has not seen her oncologist in many years PPX: -lovenox 40mg sc -protonix IV 40mg Patient seen and case discussed with attending, Dr. Ruelas <Ambrose Ruelas - Last Filed: 02/04/19 15:22> Results - Vital Signs Recent Vital Signs: Last Vital Signs Temp 98.3 F 02/04/19 08:39 Pulse 104 H 02/04/19 08:39 Resp 20 02/04/19 08:39 BP 138/82 02/04/19 08:39 Pulse Ox 97 02/04/19 08:39 - Labs Result Diagrams: 02/04/19 07:20 02/04/19 07:20 Labs: Laboratory Results - last 24 hr 02/03/19 02/03/19 02/03/19 15:00 15:00 15:00 WBC 13.9 H RBC 4.08 Hgb 12.5 Hct 39.1 MCV 95.8 MCH 30.6 MCHC 32.0 RDW 13.7 Plt Count 339 MPV 9.9 Neut % (Auto) 73.8 H Lymph % (Auto) 20.1 L [place] % (Auto) 5.7 Eos % (Auto) 0.2 L Baso % (Auto) 0.2 Lymph # (Auto) 2.8 [place] # (Auto) 0.8 H Eos # (Auto) 0.0 Baso # (Auto) 0.03 Absolute Neuts (auto) 10.29 H PT 15.1 H INR 1.36 APTT 32.0 Sodium 139 Potassium 3.8 Chloride 102 Carbon Dioxide 27 Anion Gap 14 BUN 14 Creatinine 0.5 L Est GFR ( Amer) > 60 Est GFR (Non-Af Amer) > 60 Random Glucose 101 Calcium 9.0 Magnesium 2.1 Total Bilirubin 0.4 AST 38 H D ALT 29 Alkaline Phosphatase 87 Total Protein 8.2 Albumin 3.9 Globulin 4.2 Albumin/Globulin Ratio 0.9 L Lipase 36 Urine Color Urine Appearance Urine pH Ur Specific [place] Urine Protein Urine Glucose (UA) Urine Ketones Urine Blood Urine Nitrate Urine Bilirubin Urine Urobilinogen Ur Leukocyte Esterase Urine RBC Urine WBC Ur Epithelial Cells 02/03/19 02/04/19 02/04/19 16:55 07:20 07:20 WBC 10.8 D RBC 3.65 Hgb 11.0 L Hct 34.7 L MCV 95.1 MCH 30.1 MCHC 31.7 RDW 13.9 Plt Count 291 MPV 9.8 Neut % (Auto) 58.3 Lymph % (Auto) 32.5 [place] % (Auto) 8.5 H Eos % (Auto) 0.4 L Baso % (Auto) 0.3 Lymph # (Auto) 3.5 H [place] # (Auto) 0.9 H Eos # (Auto) 0.0 Baso # (Auto) 0.03 Absolute Neuts (auto) 6.28 PT INR APTT Sodium 138 Potassium 3.4 L Chloride 105 Carbon Dioxide 26 Anion Gap 11 BUN 11 Creatinine 0.4 L Est GFR ( Amer) > 60 Est GFR (Non-Af Amer) > 60 Random Glucose 86 Calcium 8.5 Magnesium Total Bilirubin 0.4 AST 38 H ALT 31 Alkaline Phosphatase 76 Total Protein 7.1 Albumin 3.7 Globulin 3.4 Albumin/Globulin Ratio 1.1 Lipase Urine Color Yellow Urine Appearance Clear Urine pH 6.5 Ur Specific [place] 1.020 Urine Protein Trace H Urine Glucose (UA) Negative Urine Ketones Negative Urine Blood Negative Urine Nitrate Positive H Urine Bilirubin Negative Urine Urobilinogen 0.2 Ur Leukocyte Esterase Small H Urine RBC 0 - 2 Urine WBC 1 - 3 Ur Epithelial Cells 4 - 5 Attending/Attestation - Attestation I have personally seen and examined this patient.: Yes I have fully participated in the care of the patient.: Yes I have reviewed all pertinent clinical information: Yes Notes (Text): 02/04/19 15:17 Attending note; Patient seen and examined with resident in ER. Patient is alert and awake Complaining of left lower quadrant pain. Patient also complaining of nausea and vomiting. Patient is usually constipated. denies any Fevers, chills. Patient is currently treated with p.o. antibiotics. Patient is a 63 year old female with PMH of diverticulitis (last hospitalization 2 years ago) and endometrial CA s/p total hysterectomy and B/L salpingectomy presenting to the hospital for one day history of LLQ abdominal pain. 1. Acute sigmoid diverticulitis; patient has left lower quadrant pain. CT scan showed acute sigmoid diverticulitis without any collection or free air cholelithiasis without cholecystitis. N.p.o. for now. IVF. Started on IV Rocephin and Flagyl. 2. Nausea vomiting; continue IV Zofran. 3. Loose stool; patient was recently treated with doxycycline and Flagyl for H. pylori. Stool for C. difficile ordered . 4. GI prophylaxis with Protonix. GI evaluation requested. Upon discharge the patient will follow up with PMD Dr. Guevara. follow up with GI Dr. Arrieta. 02/04/19 15:21
[2019-02-03] MEDS ORDERED: Morphine 2 mg/ml ISec IVP PRN (18:42)
[2019-02-03] MEDS: Sodium Chloride 0.9% 1,000 ML IV SCH (19:49)
[2019-02-03] MEDS: metroNIDAZOLE IV 500 mg/100 ml 500 MG/100 ML BAG IVPB SCH (21:08)
--- NOTE | 2019-02-03 22:15 | CARD ---
APPROVED REPORT Date of service: 02/03/2019 EKG Measurement Heart [id number] <Conclusion> Sinus tachycardia Minor NDSTT abnormalities- possibly rate related Otherwise normal ECG
[2019-02-04] MEDS ORDERED: Piperacillin/Tazobact 3.375 gm 100 ML IVPB SCH
[2019-02-04] MEDS: metroNIDAZOLE IV 500 mg/100 ml 500 MG/100 ML BAG IVPB SCH (05:23)
[2019-02-04] MEDS: Sodium Chloride 0.9% 1,000 ML IV SCH (05:25)
--- NOTE | 2019-02-04 07:18 | CP.PCM.CON ---
<Yuval Venegas - Last Filed: 02/04/19 21:43> History of Present Illness - History of Present Illness History of Present Illness: Yuval Venegas PGY2 GI Consult Note for Dr. Arrieta Reason for consult: sigmoid diverticulitis Ms. Mcdonough is a 63 year old female with a PMH of H.pylori, diverticulitis (last hospitalization 2 years ago) and endometrial CA s/p total hysterectomy and B/L salpingectomy who is admitted for sigmoid diverticulitis. Patient initially presented to Dr. Arrieta's office in 09/2018 with GERD symptoms and was placed on a PPI trial. Patient noted little improvement so a decision was made to undergo EGD/Colonoscopy. H.pylori was diagnosed at that time, and the patient was started on amoxicillin, clarithromycin and continued PPI. Patient failed therapy w/ follow-up breath test being positive and so in January, she was started on quadruple therapy w/ PPI, flagyl, doxycycline and bismuth. Patient now presents w/ 1 day history of nausea/vomiting, abdominal pain (mainly LLQ, sharp) and diarrhea. CT reviewed showing acute sigmoid diverticulitis. She denies fevers/chills, cough, shortness of breath, chest pain or any rashes. 12-pt ROS was reviewed and is otherwise unremarkable. PMD: Dr. Rosa GI: Dr. Arrieta PMH: as above PSH: appendectomy in the , total hysterectomy and B/L salpingectomy in 2013 Meds: reviewed, as per MAR Allergies: NKDA SHx: former smoker, denies drugs and alcohol FH: father (esophageal cancer), sister (breast cancer and multiple myeloma) Review of Systems - Review of Systems All systems: reviewed and no additional remarkable complaints except (as per HPI) Past Patient History - Infectious Disease Hx of Infectious Diseases: None - Past Social History Smoking Status: Current Some Days Smoker Alcohol: None Drugs: Denies Home Situation {Lives}: With Family - CARDIAC Hx Cardiac Disorders: No - PULMONARY Hx Respiratory Disorders: No - NEUROLOGICAL Hx Neurological Disorder: No - HEENT Hx HEENT Problems: No - RENAL Hx Chronic Kidney Disease: No - ENDOCRINE/METABOLIC Hx Endocrine Disorders: No - HEMATOLOGICAL/ONCOLOGICAL Hx Blood Disorders: Yes Hx Cancer: Yes (endometrial in remission) - INTEGUMENTARY Hx Dermatological Problems: No - MUSCULOSKELETAL/RHEUMATOLOGICAL Hx Musculoskeletal Disorders: No Hx Falls: Yes Hx Unsteady Gait: No - GASTROINTESTINAL Hx Gastrointestinal Disorders: Yes Hx Diverticulitis: Yes Hx Gastroesophageal Reflux: Yes Other/Comment: H Pylori, gallstones - GENITOURINARY/GYNECOLOGICAL Hx Genitourinary Disorders: No - PSYCHIATRIC Hx Psychophysiologic Disorder: No Hx Substance Use: No - SURGICAL HISTORY Hx Surgeries: Yes Hx Hysterectomy: Yes Other/Comment: colonoscopy: hemmhroids and 1 single polyp - ANESTHESIA Hx Anesthesia Reactions: Yes (HEADACHE) Hx Malignant Hyperthermia: No Meds Allergies/Adverse Reactions: Allergies Allergy/AdvReac Type Severity Reaction Status Date / Time No Known Allergies Allergy Verified 02/03/19 21:00 - Medications Medications: Current Medications Acetaminophen (Tylenol 325mg Tab) 650 mg PO Q6H PRN PRN Reason: Pain, moderate (4-7) Enoxaparin Sodium (Lovenox) 40 mg SC DAILY [facility]; Protocol Metronidazole (Flagyl) 500 mg in 100 mls @ 100 mls/hr IVPB Q8 [facility]; Protocol Last Admin: 02/04/19 05:23 Dose: 100 mls/hr Ceftriaxone Sodium (Rocephin 1 Gram Ivpb) 1 gm in 100 mls @ 100 mls/hr IVPB DAILY [facility]; Protocol Sodium Chloride (Sodium Chloride 0.9%) 1,000 mls @ 100 mls/hr IV .Q10H [facility] Last Admin: 02/04/19 05:25 Dose: Not Given Morphine Sulfate (Morphine) 1 mg IVP Q6H PRN PRN Reason: Pain, severe (8-10) Ondansetron HCl (Zofran Inj) 4 mg IVP Q6H PRN PRN Reason: Nausea/Vomiting Pantoprazole Sodium (Protonix Inj) 40 mg IVP DAILY [facility] Physical Exam - Constitutional Appears: Well, Non-toxic, No Acute Distress - Head Exam Head Exam: ATRAUMATIC, NORMAL INSPECTION - Eye Exam Eye Exam: EOMI, Normal appearance - ENT Exam ENT Exam: Mucous Membranes Moist, Normal Exam - Neck Exam Neck exam: Positive for: Full Rom, Normal Inspection - Respiratory Exam Respiratory Exam: Clear to Auscultation Bilateral, NORMAL BREATHING PATTERN. absent: Respiratory Distress - Cardiovascular Exam Cardiovascular Exam: RRR, +S1, +S2 - GI/Abdominal Exam GI & Abdominal Exam: Hypoactive Bowel Sounds, Normal Bowel Sounds, Soft, Tenderness (diffuse, but mainly left sided) - Extremities Exam Extremities exam: Positive for: full ROM, normal inspection - Neurological Exam Neurological exam: Alert, Oriented x3 - Skin Skin Exam: Normal Color, Warm Results - Vital Signs Recent Vital Signs: Last Vital Signs Temp 98.9 F 02/03/19 14:43 Pulse 86 02/03/19 20:18 Resp 18 02/03/19 20:18 BP 138/75 02/03/19 17:43 Pulse Ox 96 02/03/19 17:43 - Labs Result Diagrams: 02/04/19 07:20 02/04/19 07:20 Labs: Laboratory Results - last 24 hr 02/03/19 02/03/19 02/03/19 15:00 15:00 15:00 WBC 13.9 H RBC 4.08 Hgb 12.5 Hct 39.1 MCV 95.8 MCH 30.6 MCHC 32.0 RDW 13.7 Plt Count 339 MPV 9.9 Neut % (Auto) 73.8 H Lymph % (Auto) 20.1 L [place] % (Auto) 5.7 Eos % (Auto) 0.2 L Baso % (Auto) 0.2 Lymph # (Auto) 2.8 [place] # (Auto) 0.8 H Eos # (Auto) 0.0 Baso # (Auto) 0.03 Absolute Neuts (auto) 10.29 H PT 15.1 H INR 1.36 APTT 32.0 Sodium 139 Potassium 3.8 Chloride 102 Carbon Dioxide 27 Anion Gap 14 BUN 14 Creatinine 0.5 L Est GFR ( Amer) > 60 Est GFR (Non-Af Amer) > 60 Random Glucose 101 Calcium 9.0 Magnesium 2.1 Total Bilirubin 0.4 AST 38 H D ALT 29 Alkaline Phosphatase 87 Total Protein 8.2 Albumin 3.9 Globulin 4.2 Albumin/Globulin Ratio 0.9 L Lipase 36 Urine Color Urine Appearance Urine pH Ur Specific [place] Urine Protein Urine Glucose (UA) Urine Ketones Urine Blood Urine Nitrate Urine Bilirubin Urine Urobilinogen Ur Leukocyte Esterase Urine RBC Urine WBC Ur Epithelial Cells 02/03/19 16:55 WBC RBC Hgb Hct MCV MCH MCHC RDW Plt Count MPV Neut % (Auto) Lymph % (Auto) [place] % (Auto) Eos % (Auto) Baso % (Auto) Lymph # (Auto) [place] # (Auto) Eos # (Auto) Baso # (Auto) Absolute Neuts (auto) PT INR APTT Sodium Potassium Chloride Carbon Dioxide Anion Gap BUN Creatinine Est GFR ( Amer) Est GFR (Non-Af Amer) Random Glucose Calcium Magnesium Total Bilirubin AST ALT Alkaline Phosphatase Total Protein Albumin Globulin Albumin/Globulin Ratio Lipase Urine Color Yellow Urine Appearance Clear Urine pH 6.5 Ur Specific [place] 1.020 Urine Protein Trace H Urine Glucose (UA) Negative Urine Ketones Negative Urine Blood Negative Urine Nitrate Positive H Urine Bilirubin Negative Urine Urobilinogen 0.2 Ur Leukocyte Esterase Small H Urine RBC 0 - 2 Urine WBC 1 - 3 Ur Epithelial Cells 4 - 5 Assessment & Plan - Assessment and Plan (Free Text) Assessment: 63 year old female with a PMH of H.pylori, diverticulitis and endometrial CA who is admitted for sigmoid diverticulitis while on outpatient H.pylori treatment. CT abd/pelvis was reviewed. Plan: - patient admitted to med-surg for management - cont CLD as tolerated - Rocephin/Flagyl started for diverticulitis - blood & stool cultures and c.diff pending - ID is following, recs appreciated as patient was on outpatient abx - cont PPI from home - No leukocytosis or fever at this time, will monitor for any signs of sepsis - further recs per Dr. Arrieta Case was reviewed and discussed with Dr. Arrieta <Keesha Arrieta V - Last Filed: 02/04/19 23:52> Meds - Medications Medications: Current Medications Enoxaparin Sodium (Lovenox) 40 mg SC DAILY [facility]; Protocol Last Admin: 02/04/19 09:49 Dose: 40 mg Home Med (Home Med) 1 unit PO Q6 PRN PRN Reason: Pain, moderate (4-7) Last Admin: 02/04/19 09:55 Dose: 1 unit Sodium Chloride (Sodium Chloride 0.9%) 1,000 mls @ 100 mls/hr IV .Q10H [facility] Last Admin: 02/04/19 05:25 Dose: Not Given Piperacillin Sod/Tazobactam Sod (Zosyn 3.375 In Ns 100ml) 100 mls @ 25 mls/hr IVPB Q8 [facility]; Protocol Stop: 02/05/19 01:59 Last Admin: 02/04/19 21:30 Dose: 25 mls/hr Morphine Sulfate (Morphine) 1 mg IVP Q6H PRN PRN Reason: Pain, severe (8-10) Ondansetron HCl (Zofran Inj) 4 mg IVP Q6H PRN PRN Reason: Nausea/Vomiting Pantoprazole Sodium (Protonix Inj) 40 mg IVP DAILY [facility] Last Admin: 02/04/19 09:49 Dose: 40 mg Results - Vital Signs Recent Vital Signs: Last Vital Signs Temp 98.3 F 02/04/19 17:28 Pulse 82 02/04/19 17:28 Resp 20 02/04/19 17:28 BP 117/71 02/04/19 17:28 Pulse Ox 97 02/04/19 17:28 - Labs Result Diagrams: 02/04/19 07:20 02/04/19 07:20 Labs: Laboratory Results - last 24 hr 02/04/19 02/04/19 07:20 07:20 WBC 10.8 D RBC 3.65 Hgb 11.0 L Hct 34.7 L MCV 95.1 MCH 30.1 MCHC 31.7 RDW 13.9 Plt Count 291 MPV 9.8 Neut % (Auto) 58.3 Lymph % (Auto) 32.5 [place] % (Auto) 8.5 H Eos % (Auto) 0.4 L Baso % (Auto) 0.3 Lymph # (Auto) 3.5 H [place] # (Auto) 0.9 H Eos # (Auto) 0.0 Baso # (Auto) 0.03 Absolute Neuts (auto) 6.28 Sodium 138 Potassium 3.4 L Chloride 105 Carbon Dioxide 26 Anion Gap 11 BUN 11 Creatinine 0.4 L Est GFR ( Amer) > 60 Est GFR (Non-Af Amer) > 60 Random Glucose 86 Calcium 8.5 Total Bilirubin 0.4 AST 38 H ALT 31 Alkaline Phosphatase 76 Total Protein 7.1 Albumin 3.7 Globulin 3.4 Albumin/Globulin Ratio 1.1 Attending/Attestation - Attestation I have personally seen and examined this patient.: Yes I have fully participated in the care of the patient.: Yes I have reviewed all pertinent clinical information: Yes Notes (Text): This is an addendum to the GI consultation report dictated by the medical hospital sales. Patient was seen and evaluated along with the resident ramona. CT scan was reviewed. Patient has been on antibiotics for H. pylori. Moderate acute diverticulitis continue IV antibiotics as per ID 02/04/19 23:51
[2019-02-04 07:54] LABS: BASO # 0.03 K/mm3 (0.0-2.0); BASO % 0.3 % (0.0-3.0); EOS % 0.4 % (1.5-5.0); LYMPH # 3.5 (1.2-3.4); LYMPH % 32.5 % (22.0-35.0); MEAN CELL VOLUME 95.1 fl (80.0-105.0); MEAN CORPUSCULAR HEMOGLOBIN 30.1 pg (25.0-35.0); MEAN CORPUSCULAR HGB CONC 31.7 g/dl (31.0-37.0); MEAN PLATELET VOLUME 9.8 fl (7.0-11.0); MONO # 0.9 (0.1-0.6); MONO % 8.5 % (1.0-6.0); RBC 3.65 10^6/uL (3.5-6.1); RED CELL DISTRIBUTION WIDTH 13.9 % (11.5-14.5); WHITE BLOOD COUNT 10.8 10^3/uL (4.5-11.0)
[2019-02-04 08:18] LABS: ALB/GLOB RATIO 1.1 (1.1-1.8); ALBUMIN 3.7 g/dL (3.0-4.8); ALT/SGPT 31 U/L (7-56); AST/SGOT 38 U/L (14-36); BLOOD UREA NITROGEN 11 mg/dL (7-21); CALCIUM 8.5 mg/dL (8.4-10.5); GFR NON-AFRICAN AMERICAN > 60
[2019-02-04] MEDS ORDERED: Magnesium Oxide 400 mg Tab UD PO ONE (08:49)
[2019-02-04] MEDS: Enoxaparin 40 mg Syringe SC SCH (09:49)
[2019-02-04] MEDS: Potassium Chloride 40 mEq/30 ml LIQ UD PO ONE ×2 (09:50→10:44)
[2019-02-04] MEDS: EXCEDRIN PO PRN (09:55)
[2019-02-04] MEDS ORDERED: cefTRIAXone 1 gm 1 GM/100 ML BAG IVPB SCH (10:00)
[2019-02-04] MEDS ORDERED: EXCEDRIN PO PRN (10:17)
[2019-02-04] MEDS ORDERED: Potassium Chloride 20 mEq ER Tab PO ONE (10:44)
--- NOTE | 2019-02-04 11:55 | CP.PCM.PN ---
<Heather Bright - Last Filed: 02/04/19 11:52> Subjective - Date & Time of Evaluation Date of Evaluation: 02/04/19 Time of Evaluation: 09:45 - Subjective Subjective: Heather Bright PGY1 Medicine Progress Note Patient seen and examined at bedside this morning. No acute events reported overnight. Patient states abdominal pain is improved but still present. Tolerating CLD and states she does not wish to advance diet at this time. Denies any new complaints this morning. Objective - Vital Signs/Intake and Output Vital Signs (last 24 hours): Temp Pulse Resp BP Pulse Ox 98.3 F 104 H 20 138/82 97 02/04/19 08:39 02/04/19 08:39 02/04/19 08:39 02/04/19 08:39 02/04/19 08:39 Intake and Output: 02/04/19 02/04/19 06:59 18:59 Intake Total 1320 Balance 1320 - Medications Medications: Current Medications Enoxaparin Sodium (Lovenox) 40 mg SC DAILY [facility]; Protocol Last Admin: 02/04/19 09:49 Dose: 40 mg Home Med (Home Med) 1 unit PO Q6 PRN PRN Reason: Pain, moderate (4-7) Last Admin: 02/04/19 09:55 Dose: 1 unit Sodium Chloride (Sodium Chloride 0.9%) 1,000 mls @ 100 mls/hr IV .Q10H [facility] Last Admin: 02/04/19 05:25 Dose: Not Given Piperacillin Sod/Tazobactam Sod (Zosyn 3.375 In Ns 100ml) 100 mls @ 25 mls/hr IVPB Q8 [facility]; Protocol Stop: 02/05/19 01:59 Morphine Sulfate (Morphine) 1 mg IVP Q6H PRN PRN Reason: Pain, severe (8-10) Ondansetron HCl (Zofran Inj) 4 mg IVP Q6H PRN PRN Reason: Nausea/Vomiting Pantoprazole Sodium (Protonix Inj) 40 mg IVP DAILY [facility] Last Admin: 02/04/19 09:49 Dose: 40 mg - Labs Labs: 02/04/19 07:20 02/04/19 07:20 PT 15.1 SECONDS (9.4-12.5) H 02/03/19 15:00 INR 1.36 02/03/19 15:00 APTT 32.0 Seconds (26.9-38.3) 02/03/19 15:00 Physical Exam - Constitutional Appears: No Acute Distress - Head Exam Head Exam: ATRAUMATIC, NORMAL INSPECTION - Eye Exam Eye Exam: EOMI Pupil Exam: NORMAL ACCOMODATION - ENT Exam ENT Exam: Mucous Membranes Moist - Neck Exam Neck exam: Positive for: Normal Inspection - Respiratory Exam Respiratory Exam: Clear to Auscultation Bilateral. absent: Accessory Muscle Use, Wheezes, Respiratory Distress - Cardiovascular Exam Cardiovascular Exam: REGULAR RHYTHM, +S1, +S2 - GI/Abdominal Exam GI & Abdominal Exam: Normal Bowel Sounds, Soft. absent: Distended, Firm, Guarding Additional comments: LLQ tenderness appreciated with deep palpation - Extremities Exam Extremities exam: Positive for: pedal pulses present. Negative for: calf tenderness, pedal edema, tenderness - Back Exam Back exam: absent: CVA tenderness (L), CVA tenderness (R) - Neurological Exam Neurological exam: Alert, CN II-XII Intact, Oriented x3 - Skin Skin Exam: Normal Color, Warm Assessment and Plan - Assessment and Plan (Free Text) Assessment: This is a 63 year old female with PMH of diverticulitis (last hospitalization 2 years ago) and endometrial CA s/p total hysterectomy and B/L salpingectomy presenting to the hospital for one day history of LLQ abdominal pain. Patient admitted for sigmoid diverticulitis. Plan: Sigmoid Diverticulitis: -CTAP 02/03 showed acute sigmoid diverituclitis and cholelithiasis without evidence of acute cholecystitis -afebrile, WBC downtrending today -zosyn day 2 -CLD -zofran prn -morphine prn -NS @ 100cc -stool/blood/urine/c diff culture pending -GI on consult, Dr. Arrieta -ID on consult Hypokalemia -repleted, monitor Hx of endometrial CA -s/p total hysterectomy and B/L salpingectomy -s/p 8 round chemotherapy -in remission per patient -patient states she has not seen her oncologist in many years PPX: -lovenox 40mg sc -protonix IV 40mg Patient seen and case discussed with attending, Dr. Ruelas <Ambrose Ruelas - Last Filed: 02/04/19 15:24> Objective - Vital Signs/Intake and Output Vital Signs (last 24 hours): Temp Pulse Resp BP Pulse Ox 98.3 F 104 H 20 138/82 97 02/04/19 08:39 02/04/19 08:39 02/04/19 08:39 02/04/19 08:39 02/04/19 08:39 Intake and Output: 02/04/19 02/04/19 06:59 18:59 Intake Total 1320 Balance 1320 - Medications Medications: Current Medications Enoxaparin Sodium (Lovenox) 40 mg SC DAILY [facility]; Protocol Last Admin: 02/04/19 09:49 Dose: 40 mg Home Med (Home Med) 1 unit PO Q6 PRN PRN Reason: Pain, moderate (4-7) Last Admin: 02/04/19 09:55 Dose: 1 unit Sodium Chloride (Sodium Chloride 0.9%) 1,000 mls @ 100 mls/hr IV .Q10H [facility] Last Admin: 02/04/19 05:25 Dose: Not Given Piperacillin Sod/Tazobactam Sod (Zosyn 3.375 In Ns 100ml) 100 mls @ 25 mls/hr IVPB Q8 [facility]; Protocol Stop: 02/05/19 01:59 Last Admin: 02/04/19 14:28 Dose: 25 mls/hr Morphine Sulfate (Morphine) 1 mg IVP Q6H PRN PRN Reason: Pain, severe (8-10) Ondansetron HCl (Zofran Inj) 4 mg IVP Q6H PRN PRN Reason: Nausea/Vomiting Pantoprazole Sodium (Protonix Inj) 40 mg IVP DAILY [facility] Last Admin: 02/04/19 09:49 Dose: 40 mg - Labs Labs: 02/04/19 07:20 02/04/19 07:20 PT 15.1 SECONDS (9.4-12.5) H 02/03/19 15:00 INR 1.36 02/03/19 15:00 APTT 32.0 Seconds (26.9-38.3) 02/03/19 15:00 Attending/Attestation - Attestation I have personally seen and examined this patient.: Yes I have fully participated in the care of the patient.: Yes I have reviewed all pertinent clinical information, including history, physical exam and plan: Yes Notes (Text): 02/04/19 15:23 Attending note; Patient seen and examined with resident. Patient is alert and awake still Complaining of left lower quadrant pain. Patient is started on clear liquid diet. Complaining of pain on and off. denies any Fevers, chills. Patient is currently treated with p.o. antibiotics. Patient is a 63 year old female with PMH of diverticulitis (last hospitalization 2 years ago) and endometrial CA s/p total hysterectomy and B/L salpingectomy presenting to the hospital for one day history of LLQ abdominal pain. 1. Acute sigmoid diverticulitis; patient has left lower quadrant pain. CT scan showed acute sigmoid diverticulitis without any collection or free air cholelithiasis without cholecystitis. Started on clear liquid diet. ID evaluation appreciated. Patient is on IV Zosyn. 2. Nausea vomiting; resolving .continue IV Zofran as needed. 3. Loose stool; patient was recently treated with doxycycline and Flagyl for H. pylori. Stool for C. difficile ordered . 4. GI prophylaxis with Protonix. GI evaluation appreciated. 5. Hypokalemia; p.o. potassium supplementation ordered. Upon discharge the patient will follow up with PMD Dr. Guevara. follow up with GI Dr. Arrieta. 02/04/19 15:24
--- NOTE | 2019-02-04 13:44 | CP.PCM.CON ---
<Donald Cooley - Last Filed: 02/04/19 13:37> History of Present Illness - History of Present Illness History of Present Illness: Donald Cooley D.O. 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 Infectious disease consultation was requested for diverticulitis. Patient was seen and examined at bedside. Patient relates how 1 month ago she had an EGD with Dr. Arrieta and was found to have H pylori. Patient was started on therapy but states that about 2 weeks ago she did the urea breath test and was found to still be positive. Patient then had a change to her abx regimen and states that she was on vibramycin with metronidazole with pepto. Patient then began to experience diarrhea as well as severe left lower quadrant pain. Patient states that she ate chicken with rice that night and so did her family so she doesn't think it could've been what she ate. 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 Denies any more nausea but has a slight headache. Review of Systems - Review of Systems All systems: reviewed and no additional remarkable complaints except (as per HPI) Past Patient History - Infectious Disease Hx of Infectious Diseases: None - Past Social History Smoking Status: Current Some Days Smoker Alcohol: None Drugs: Denies Home Situation {Lives}: With Family - CARDIAC Hx Cardiac Disorders: No - PULMONARY Hx Respiratory Disorders: No - NEUROLOGICAL Hx Neurological Disorder: No - HEENT Hx HEENT Problems: No - RENAL Hx Chronic Kidney Disease: No - ENDOCRINE/METABOLIC Hx Endocrine Disorders: No - HEMATOLOGICAL/ONCOLOGICAL Hx Blood Disorders: Yes Hx Cancer: Yes (endometrial in remission) - INTEGUMENTARY Hx Dermatological Problems: No - MUSCULOSKELETAL/RHEUMATOLOGICAL Hx Musculoskeletal Disorders: No Hx Falls: Yes Hx Unsteady Gait: No - GASTROINTESTINAL Hx Gastrointestinal Disorders: Yes Hx Diverticulitis: Yes Hx Gastroesophageal Reflux: Yes Other/Comment: H Pylori, gallstones - GENITOURINARY/GYNECOLOGICAL Hx Genitourinary Disorders: No - PSYCHIATRIC Hx Psychophysiologic Disorder: No Hx Substance Use: No - SURGICAL HISTORY Hx Surgeries: Yes Hx Hysterectomy: Yes Other/Comment: colonoscopy: hemmhroids and 1 single polyp - ANESTHESIA Hx Anesthesia Reactions: Yes (HEADACHE) Hx Malignant Hyperthermia: No Meds Allergies/Adverse Reactions: Allergies Allergy/AdvReac Type Severity Reaction Status Date / Time No Known Allergies Allergy Verified 02/03/19 21:00 - Medications Medications: Current Medications Enoxaparin Sodium (Lovenox) 40 mg SC DAILY [facility]; Protocol Last Admin: 02/04/19 09:49 Dose: 40 mg Home Med (Home Med) 1 unit PO Q6 PRN PRN Reason: Pain, moderate (4-7) Last Admin: 02/04/19 09:55 Dose: 1 unit Sodium Chloride (Sodium Chloride 0.9%) 1,000 mls @ 100 mls/hr IV .Q10H [facility] Last Admin: 02/04/19 05:25 Dose: Not Given Piperacillin Sod/Tazobactam Sod (Zosyn 3.375 In Ns 100ml) 100 mls @ 25 mls/hr IVPB Q8 [facility]; Protocol Stop: 02/05/19 01:59 Morphine Sulfate (Morphine) 1 mg IVP Q6H PRN PRN Reason: Pain, severe (8-10) Ondansetron HCl (Zofran Inj) 4 mg IVP Q6H PRN PRN Reason: Nausea/Vomiting Pantoprazole Sodium (Protonix Inj) 40 mg IVP DAILY [facility] Last Admin: 02/04/19 09:49 Dose: 40 mg Physical Exam - Constitutional Appears: Non-toxic, No Acute Distress - Head Exam Head Exam: ATRAUMATIC, NORMOCEPHALIC - Eye Exam Eye Exam: EOMI. absent: Scleral icterus - ENT Exam ENT Exam: Mucous Membranes Moist - Neck Exam Neck exam: Positive for: Normal Inspection - Respiratory Exam Respiratory Exam: absent: Rales, Rhonchi, Wheezes - Cardiovascular Exam Cardiovascular Exam: +S1, +S2. absent: Gallop, Rubs - GI/Abdominal Exam GI & Abdominal Exam: Soft, Tenderness (LLQ). absent: Distended - Extremities Exam Extremities exam: Negative for: calf tenderness, pedal edema - Neurological Exam Neurological exam: Alert, Oriented x3 - Skin Skin Exam: Dry, Warm Results - Vital Signs Recent Vital Signs: Last Vital Signs Temp 98.3 F 02/04/19 08:39 Pulse 104 H 02/04/19 08:39 Resp 20 02/04/19 08:39 BP 138/82 02/04/19 08:39 Pulse Ox 97 02/04/19 08:39 - Labs Result Diagrams: 02/04/19 07:20 02/04/19 07:20 Labs: Laboratory Results - last 24 hr 02/03/19 02/03/19 02/03/19 15:00 15:00 15:00 WBC 13.9 H RBC 4.08 Hgb 12.5 Hct 39.1 MCV 95.8 MCH 30.6 MCHC 32.0 RDW 13.7 Plt Count 339 MPV 9.9 Neut % (Auto) 73.8 H Lymph % (Auto) 20.1 L Leon % (Auto) 5.7 Eos % (Auto) 0.2 L Baso % (Auto) 0.2 Lymph # (Auto) 2.8 Leon # (Auto) 0.8 H Eos # (Auto) 0.0 Baso # (Auto) 0.03 Absolute Neuts (auto) 10.29 H PT 15.1 H INR 1.36 APTT 32.0 Sodium 139 Potassium 3.8 Chloride 102 Carbon Dioxide 27 Anion Gap 14 BUN 14 Creatinine 0.5 L Est GFR ( Amer) > 60 Est GFR (Non-Af Amer) > 60 Random Glucose 101 Calcium 9.0 Magnesium 2.1 Total Bilirubin 0.4 AST 38 H D ALT 29 Alkaline Phosphatase 87 Total Protein 8.2 Albumin 3.9 Globulin 4.2 Albumin/Globulin Ratio 0.9 L Lipase 36 Urine Color Urine Appearance Urine pH Ur Specific [place] Urine Protein Urine Glucose (UA) Urine Ketones Urine Blood Urine Nitrate Urine Bilirubin Urine Urobilinogen Ur Leukocyte Esterase Urine RBC Urine WBC Ur Epithelial Cells 02/03/19 02/04/19 02/04/19 16:55 07:20 07:20 WBC 10.8 D RBC 3.65 Hgb 11.0 L Hct 34.7 L MCV 95.1 MCH 30.1 MCHC 31.7 RDW 13.9 Plt Count 291 MPV 9.8 Neut % (Auto) 58.3 Lymph % (Auto) 32.5 Leon % (Auto) 8.5 H Eos % (Auto) 0.4 L Baso % (Auto) 0.3 Lymph # (Auto) 3.5 H Leon # (Auto) 0.9 H Eos # (Auto) 0.0 Baso # (Auto) 0.03 Absolute Neuts (auto) 6.28 PT INR APTT Sodium 138 Potassium 3.4 L Chloride 105 Carbon Dioxide 26 Anion Gap 11 BUN 11 Creatinine 0.4 L Est GFR ( Amer) > 60 Est GFR (Non-Af Amer) > 60 Random Glucose 86 Calcium 8.5 Magnesium Total Bilirubin 0.4 AST 38 H ALT 31 Alkaline Phosphatase 76 Total Protein 7.1 Albumin 3.7 Globulin 3.4 Albumin/Globulin Ratio 1.1 Lipase Urine Color Yellow Urine Appearance Clear Urine pH 6.5 Ur Specific [place] 1.020 Urine Protein Trace H Urine Glucose (UA) Negative Urine Ketones Negative Urine Blood Negative Urine Nitrate Positive H Urine Bilirubin Negative Urine Urobilinogen 0.2 Ur Leukocyte Esterase Small H Urine RBC 0 - 2 Urine WBC 1 - 3 Ur Epithelial Cells 4 - 5 Assessment & Plan - Assessment and Plan (Free Text) Assessment: 63 year old female with a PMH fo endometrial CA s/p PORFIRIO with BSO and ch emotherapy in 2013, 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 Infectious disease consultation was requested for diverticulitis. Plan: Sepsis likely 2/2 diverticulitis Endometrial CA s/p PORFIRIO with BSO and chemo Former smoker H. pylori 2/4 SIRS with tachycardia and leukocytosis C. Diff negative BCx ordered Abd/pelvis CT revealed acute sigmoid diverticulitis Will treat empirically with zosyn Afebrile Leukocytosis resolved from presentation GI following, recs appreciated Will discuss with primary team We will follow with you Patient was seen and examined and case to be discussed with attending physician Thank you for the pleasure of participating in the care of this interesting p atient - Date & Time Date: 02/04/19 Time: 07:15 <Neno Best - Last Filed: 02/04/19 16:52> Meds - Medications Medications: Current Medications Enoxaparin Sodium (Lovenox) 40 mg SC DAILY [facility]; Protocol Last Admin: 02/04/19 09:49 Dose: 40 mg Home Med (Home Med) 1 unit PO Q6 PRN PRN Reason: Pain, moderate (4-7) Last Admin: 02/04/19 09:55 Dose: 1 unit Sodium Chloride (Sodium Chloride 0.9%) 1,000 mls @ 100 mls/hr IV .Q10H [facility] Last Admin: 02/04/19 05:25 Dose: Not Given Piperacillin Sod/Tazobactam Sod (Zosyn 3.375 In Ns 100ml) 100 mls @ 25 mls/hr IVPB Q8 [facility]; Protocol Stop: 02/05/19 01:59 Last Admin: 02/04/19 14:28 Dose: 25 mls/hr Morphine Sulfate (Morphine) 1 mg IVP Q6H PRN PRN Reason: Pain, severe (8-10) Ondansetron HCl (Zofran Inj) 4 mg IVP Q6H PRN PRN Reason: Nausea/Vomiting Pantoprazole Sodium (Protonix Inj) 40 mg IVP DAILY [facility] Last Admin: 02/04/19 09:49 Dose: 40 mg Results - Vital Signs Recent Vital Signs: Last Vital Signs Temp 98.3 F 02/04/19 08:39 Pulse 104 H 02/04/19 08:39 Resp 20 02/04/19 08:39 BP 138/82 02/04/19 08:39 Pulse Ox 97 02/04/19 08:39 - Labs Result Diagrams: 02/04/19 07:20 02/04/19 07:20 Labs: Laboratory Results - last 24 hr 02/03/19 02/04/19 02/04/19 16:55 07:20 07:20 WBC 10.8 D RBC 3.65 Hgb 11.0 L Hct 34.7 L MCV 95.1 MCH 30.1 MCHC 31.7 RDW 13.9 Plt Count 291 MPV 9.8 Neut % (Auto) 58.3 Lymph % (Auto) 32.5 Leon % (Auto) 8.5 H Eos % (Auto) 0.4 L Baso % (Auto) 0.3 Lymph # (Auto) 3.5 H Leon # (Auto) 0.9 H Eos # (Auto) 0.0 Baso # (Auto) 0.03 Absolute Neuts (auto) 6.28 Sodium 138 Potassium 3.4 L Chloride 105 Carbon Dioxide 26 Anion Gap 11 BUN 11 Creatinine 0.4 L Est GFR ( Amer) > 60 Est GFR (Non-Af Amer) > 60 Random Glucose 86 Calcium 8.5 Total Bilirubin 0.4 AST 38 H ALT 31 Alkaline Phosphatase 76 Total Protein 7.1 Albumin 3.7 Globulin 3.4 Albumin/Globulin Ratio 1.1 Urine Color Yellow Urine Appearance Clear Urine pH 6.5 Ur Specific [place] 1.020 Urine Protein Trace H Urine Glucose (UA) Negative Urine Ketones Negative Urine Blood Negative Urine Nitrate Positive H Urine Bilirubin Negative Urine Urobilinogen 0.2 Ur Leukocyte Esterase Small H Urine RBC 0 - 2 Urine WBC 1 - 3 Ur Epithelial Cells 4 - 5 Attending/Attestation - Attestation I have personally seen and examined this patient.: Yes I have fully participated in the care of the patient.: Yes I have reviewed all pertinent clinical information: Yes
[2019-02-04] MEDS: Piperacillin/Tazobact 3.375 gm 100 ML IVPB SCH ×2 (14:28→21:30)
[2019-02-05] MEDS: Sodium Chloride 0.9% 1,000 ML IV SCH ×2 (01:45→05:30)
--- NOTE | 2019-02-05 07:46 | CP.PCM.PN ---
<Theresa Cook - Last Filed: 02/05/19 11:00> Subjective - Date & Time of Evaluation Date of Evaluation: 02/05/19 Time of Evaluation: 07:46 - Subjective Subjective: Theresa Cook, PGY2, GI Progress Note for Dr Arrieta: Patient seen and examined at bedside. No acute events overnight. Patient reports improved LLQ tenderness, denies nausea, vomiting, fevers, chills. Reports 4-5 soft, mildly loose BMs within past 24 hrs. Reports an appetite, and states that she would like to eat. Objective - Vital Signs/Intake and Output Vital Signs (last 24 hours): Temp Pulse Resp BP Pulse Ox 98.3 F 82 20 117/71 97 02/04/19 17:28 02/04/19 17:28 02/04/19 17:28 02/04/19 17:28 02/04/19 17:28 Intake and Output: 02/05/19 02/05/19 06:59 18:59 Intake Total 1440 Balance 1440 - Medications Medications: Current Medications Enoxaparin Sodium (Lovenox) 40 mg SC DAILY [facility]; Protocol Last Admin: 02/04/19 09:49 Dose: 40 mg Home Med (Home Med) 1 unit PO Q6 PRN PRN Reason: Pain, moderate (4-7) Last Admin: 02/04/19 09:55 Dose: 1 unit Sodium Chloride (Sodium Chloride 0.9%) 1,000 mls @ 100 mls/hr IV .Q10H [facility] Last Admin: 02/05/19 05:30 Dose: 100 mls/hr Piperacillin Sod/Tazobactam Sod (Zosyn 3.375 In Ns 100ml) 100 mls @ 25 mls/hr IVPB Q8 [facility]; Protocol Stop: 02/12/19 07:46 Morphine Sulfate (Morphine) 1 mg IVP Q6H PRN PRN Reason: Pain, severe (8-10) Ondansetron HCl (Zofran Inj) 4 mg IVP Q6H PRN PRN Reason: Nausea/Vomiting Pantoprazole Sodium (Protonix Inj) 40 mg IVP DAILY [facility] Last Admin: 02/04/19 09:49 Dose: 40 mg - Labs Labs: 02/04/19 07:20 02/04/19 07:20 PT 15.1 SECONDS (9.4-12.5) H 02/03/19 15:00 INR 1.36 02/03/19 15:00 APTT 32.0 Seconds (26.9-38.3) 02/03/19 15:00 - Additional Findings Additional findings: - Constitutional Appears: Well, Non-toxic, No Acute Distress - Head Exam Head Exam: ATRAUMATIC, NORMAL INSPECTION - Eye Exam Eye Exam: EOMI, Normal appearance - ENT Exam ENT Exam: Mucous Membranes Moist, Normal Exam - Neck Exam Neck exam: Positive for: Full Rom, Normal Inspection - Respiratory Exam Respiratory Exam: Clear to Auscultation Bilateral, NORMAL BREATHING PATTERN. absent: Respiratory Distress - Cardiovascular Exam Cardiovascular Exam: RRR, +S1, +S2 - GI/Abdominal Exam GI & Abdominal Exam: Hypoactive Bowel Sounds, Normal Bowel Sounds, Soft, Tenderness (diffuse, but mainly left sided). No guarding, rebound - Extremities Exam Extremities exam: Positive for: full ROM, normal inspection - Neurological Exam Neurological exam: Alert, Oriented x3 - Skin Skin Exam: Normal Color, Warm Assessment and Plan - Assessment and Plan (Free Text) Assessment: # LLQ pain 2/2 sigmoid diverticulitis, failed outpatient abx therapy # H pylori gastritis # Endometrial cancer s/p total hysterectomy and BSO - Continue with Zosyn as per ID, appreciate recs - can advance diet as tolerated - C diff negative, Blood cultures negative so far. f/u stool culture - c/w PPI - Further recs per Dr Ventura. Case seen and discussed with Dr Arrieta. <Keesha Arrieta V - Last Filed: 02/05/19 21:43> Objective - Vital Signs/Intake and Output Vital Signs (last 24 hours): Temp Pulse Resp BP Pulse Ox 98 F 71 20 130/83 98 02/05/19 18:00 02/05/19 18:00 02/05/19 18:00 02/05/19 18:00 02/05/19 18:00 Intake and Output: 02/05/19 02/06/19 18:59 06:59 Intake Total 1220 Balance 1220 - Medications Medications: Current Medications Enoxaparin Sodium (Lovenox) 40 mg SC DAILY [facility]; Protocol Last Admin: 02/05/19 09:52 Dose: 40 mg Home Med (Home Med) 1 unit PO Q6 PRN PRN Reason: Pain, moderate (4-7) Last Admin: 02/05/19 13:35 Dose: 1 unit Sodium Chloride (Sodium Chloride 0.9%) 1,000 mls @ 100 mls/hr IV .Q10H [facility] Last Admin: 02/05/19 05:30 Dose: 100 mls/hr Piperacillin Sod/Tazobactam Sod (Zosyn 3.375 In Ns 100ml) 100 mls @ 25 mls/hr IVPB Q8 [facility]; Protocol Stop: 02/12/19 07:46 Last Admin: 02/05/19 21:30 Dose: 25 mls/hr Morphine Sulfate (Morphine) 1 mg IVP Q6H PRN PRN Reason: Pain, severe (8-10) Ondansetron HCl (Zofran Inj) 4 mg IVP Q6H PRN PRN Reason: Nausea/Vomiting Pantoprazole Sodium (Protonix Inj) 40 mg IVP DAILY [facility] Last Admin: 02/05/19 09:52 Dose: 40 mg - Labs Labs: 02/05/19 07:15 02/05/19 07:15 PT 15.1 SECONDS (9.4-12.5) H 02/03/19 15:00 INR 1.36 02/03/19 15:00 APTT 32.0 Seconds (26.9-38.3) 02/03/19 15:00 Attending/Attestation - Attestation I have personally seen and examined this patient.: Yes I have fully participated in the care of the patient.: Yes I have reviewed all pertinent clinical information, including history, physical exam and plan: Yes Notes (Text): This patient was seen and evaluated earlier along with the resident. This is an addendum to the GI progress report dictated by the resident patient complains of loose bowel movements. Abdominal pain has decreased. On examination patient still has some tenderness in the left lower quadrant. I did discuss with the Dr. Ruelas about this patient here earlier. The concern is patient was on doxycycline, Flagyl and bismuth treatment for H. pylori. Since the patient did develop acute diverticulitis while on doxycycline and Flagyl the concern is outpatient management unless patient has significant improvement. We will need to have an ID input regarding the antibiotics therapy choice for outpatient management. Would request stool for C. difficile 02/05/19 21:40
[2019-02-05 08:00] LABS: BASO # 0.03 K/mm3 (0.0-2.0); BASO % 0.4 % (0.0-3.0); EOS # 0.1 (0.0-0.7); EOS % 1.4 % (1.5-5.0); HEMOGLOBIN 10.1 g/dL (12.0-16.0); LYMPH # 2.8 (1.2-3.4); LYMPH % 38.8 % (22.0-35.0); MEAN CELL VOLUME 95.3 fl (80.0-105.0); MEAN CORPUSCULAR HEMOGLOBIN 29.7 pg (25.0-35.0); MEAN CORPUSCULAR HGB CONC 31.2 g/dl (31.0-37.0); MEAN PLATELET VOLUME 9.8 fl (7.0-11.0); MONO # 0.7 (0.1-0.6); MONO % 9.3 % (1.0-6.0); RBC 3.4 10^6/uL (3.5-6.1); RED CELL DISTRIBUTION WIDTH 13.6 % (11.5-14.5); WHITE BLOOD COUNT 7.3 10^3/uL (4.5-11.0)
[2019-02-05] MEDS: Piperacillin/Tazobact 3.375 gm 100 ML IVPB SCH ×3 (08:08→21:30)
[2019-02-05 08:10] LABS: ALB/GLOB RATIO 0.9 (1.1-1.8); ALBUMIN 3.2 g/dL (3.0-4.8); ALT/SGPT 23 U/L (7-56); AST/SGOT 31 U/L (14-36); BLOOD UREA NITROGEN 7 mg/dL (7-21); CALCIUM 8.6 mg/dL (8.4-10.5); GFR NON-AFRICAN AMERICAN > 60
[2019-02-05] MEDS: Enoxaparin 40 mg Syringe SC SCH (09:52)
--- NOTE | 2019-02-05 12:07 | CP.PCM.PN ---
<Heather Bright - Last Filed: 02/05/19 12:01> Subjective - Date & Time of Evaluation Date of Evaluation: 02/05/19 Time of Evaluation: 09:45 - Subjective Subjective: Heather Bright PGY1 Medicine Progress Note Patient seen and examined at bedside this morning. No acute events reported overnight. Patient states abdominal pain is improved and is tolerating FLD without complaints. Will advance to soft diet this afternoon. Admits to loose BM, denies any other complaints at this time. Discharge planning for tomorrow. Objective - Vital Signs/Intake and Output Vital Signs (last 24 hours): Temp Pulse Resp BP Pulse Ox 98.5 F 77 20 127/74 96 02/05/19 06:00 02/05/19 06:00 02/05/19 06:00 02/05/19 06:00 02/05/19 06:00 Intake and Output: 02/05/19 02/05/19 06:59 18:59 Intake Total 1440 Balance 1440 - Medications Medications: Current Medications Enoxaparin Sodium (Lovenox) 40 mg SC DAILY [facility]; Protocol Last Admin: 02/05/19 09:52 Dose: 40 mg Home Med (Home Med) 1 unit PO Q6 PRN PRN Reason: Pain, moderate (4-7) Last Admin: 02/04/19 09:55 Dose: 1 unit Sodium Chloride (Sodium Chloride 0.9%) 1,000 mls @ 100 mls/hr IV .Q10H [facility] Last Admin: 02/05/19 05:30 Dose: 100 mls/hr Piperacillin Sod/Tazobactam Sod (Zosyn 3.375 In Ns 100ml) 100 mls @ 25 mls/hr IVPB Q8 [facility]; Protocol Stop: 02/12/19 07:46 Last Admin: 02/05/19 08:08 Dose: 25 mls/hr Morphine Sulfate (Morphine) 1 mg IVP Q6H PRN PRN Reason: Pain, severe (8-10) Ondansetron HCl (Zofran Inj) 4 mg IVP Q6H PRN PRN Reason: Nausea/Vomiting Pantoprazole Sodium (Protonix Inj) 40 mg IVP DAILY [facility] Last Admin: 02/05/19 09:52 Dose: 40 mg - Labs Labs: 02/05/19 07:15 02/05/19 07:15 PT 15.1 SECONDS (9.4-12.5) H 02/03/19 15:00 INR 1.36 02/03/19 15:00 APTT 32.0 Seconds (26.9-38.3) 02/03/19 15:00 Physical Exam - Constitutional Appears: No Acute Distress - Head Exam Head Exam: ATRAUMATIC, NORMAL INSPECTION - Eye Exam Eye Exam: EOMI Pupil Exam: NORMAL ACCOMODATION - ENT Exam ENT Exam: Mucous Membranes Moist - Neck Exam Neck exam: Positive for: Normal Inspection - Respiratory Exam Respiratory Exam: Clear to Auscultation Bilateral. absent: Accessory Muscle Use, Wheezes, Respiratory Distress - Cardiovascular Exam Cardiovascular Exam: REGULAR RHYTHM, +S1, +S2 - GI/Abdominal Exam GI & Abdominal Exam: Normal Bowel Sounds, Soft. absent: Distended, Firm, Guarding Additional comments: LLQ tenderness appreciated - Extremities Exam Extremities exam: Positive for: pedal pulses present. Negative for: calf tenderness, pedal edema, tenderness - Back Exam Back exam: absent: CVA tenderness (L), CVA tenderness (R) - Neurological Exam Neurological exam: Alert, CN II-XII Intact, Oriented x3 - Skin Skin Exam: Normal Color, Warm Assessment and Plan - Assessment and Plan (Free Text) Assessment: This is a 63 year old female with PMH of diverticulitis (last hospitalization 2 years ago) and endometrial CA s/p total hysterectomy and B/L salpingectomy presenting to the hospital for one day history of LLQ abdominal pain. Patient admitted for sigmoid diverticulitis. Plan: Sigmoid Diverticulitis: -CTAP 02/03 showed acute sigmoid diverituclitis and cholelithiasis without evidence of acute cholecystitis -afebrile, WBC downtrending -zosyn day 3 -advance to soft diet today -zofran prn -morphine prn -NS @ 100cc -c diff culture negative, blood cx negative for 24 hours -GI on consult, Dr. Arrieta -ID on consult Hypokalemia - resolved -repleted, monitor Hx of endometrial CA -s/p total hysterectomy and B/L salpingectomy -s/p 8 round chemotherapy -in remission per patient -patient states she has not seen her oncologist in many years PPX: -lovenox 40mg sc -protonix IV 40mg Patient seen and case discussed with attending, Dr. Ruelas <Ambrose Ruelas - Last Filed: 02/05/19 16:19> Objective - Vital Signs/Intake and Output Vital Signs (last 24 hours): Temp Pulse Resp BP Pulse Ox 98.5 F 77 20 127/74 96 02/05/19 06:00 02/05/19 06:00 02/05/19 06:00 02/05/19 06:00 02/05/19 06:00 Intake and Output: 02/05/19 02/05/19 06:59 18:59 Intake Total 1440 Balance 1440 - Medications Medications: Current Medications Enoxaparin Sodium (Lovenox) 40 mg SC DAILY [facility]; Protocol Last Admin: 02/05/19 09:52 Dose: 40 mg Home Med (Home Med) 1 unit PO Q6 PRN PRN Reason: Pain, moderate (4-7) Last Admin: 02/05/19 13:35 Dose: 1 unit Sodium Chloride (Sodium Chloride 0.9%) 1,000 mls @ 100 mls/hr IV .Q10H [facility] Last Admin: 02/05/19 05:30 Dose: 100 mls/hr Piperacillin Sod/Tazobactam Sod (Zosyn 3.375 In Ns 100ml) 100 mls @ 25 mls/hr IVPB Q8 [facility]; Protocol Stop: 02/12/19 07:46 Last Admin: 02/05/19 13:35 Dose: 25 mls/hr Morphine Sulfate (Morphine) 1 mg IVP Q6H PRN PRN Reason: Pain, severe (8-10) Ondansetron HCl (Zofran Inj) 4 mg IVP Q6H PRN PRN Reason: Nausea/Vomiting Pantoprazole Sodium (Protonix Inj) 40 mg IVP DAILY [facility] Last Admin: 02/05/19 09:52 Dose: 40 mg - Labs Labs: 02/05/19 07:15 02/05/19 07:15 PT 15.1 SECONDS (9.4-12.5) H 02/03/19 15:00 INR 1.36 02/03/19 15:00 APTT 32.0 Seconds (26.9-38.3) 02/03/19 15:00 Attending/Attestation - Attestation I have personally seen and examined this patient.: Yes I have fully participated in the care of the patient.: Yes I have reviewed all pertinent clinical information, including history, physical exam and plan: Yes Notes (Text): Attending note; Patient seen and examined with resident. Patient is alert and awake. still Complaining of left lower quadrant pain. Denies any fevers, chills. Started on full liquid diet. Patient is a 63 year old female with PMH of diverticulitis (last hospitalization 2 years ago) and endometrial CA s/p total hysterectomy and B/L salpingectomy presenting to the hospital for one day history of LLQ abdominal pain. 1. Acute sigmoid diverticulitis; patient has left lower quadrant pain. CT scan showed acute sigmoid diverticulitis without any collection or free air cholelithiasis without cholecystitis. Started on clear liquid diet. Advanace As tolerated. ID evaluation appreciated. Patient is on IV Zosyn. 2. Nausea vomiting; resolved. continue IV Zofran as needed. 3. Loose stool; patient was recently treated with doxycycline and Flagyl for H. pylori. Stool for C. difficile is negative. 4. GI prophylaxis with Protonix. GI evaluation appreciated. Upon discharge the patient will follow up with PMD Dr. Guevara. follow up with GI Dr. Arrieta. 02/05/19 16:19
[2019-02-05] MEDS: EXCEDRIN PO PRN (13:35)
--- NOTE | 2019-02-05 15:20 | CP.PCM.PN ---
<Donald Cooley - Last Filed: 02/05/19 15:17> Subjective - Date & Time of Evaluation Date of Evaluation: 02/05/19 Time of Evaluation: 09:35 - Subjective Subjective: Donald Cooley D.O. 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 Infectious disease consultation was requested for diverticulitis. Patient was seen and examined at bedside. States feeling overall better. Still having a lot of diarrhea however. [place] 6-7. Feels every time she goes to urinate she has liquid stool. Objective - Vital Signs/Intake and Output Vital Signs (last 24 hours): Temp Pulse Resp BP Pulse Ox 98.5 F 77 20 127/74 96 02/05/19 06:00 02/05/19 06:00 02/05/19 06:00 02/05/19 06:00 02/05/19 06:00 Intake and Output: 02/05/19 02/05/19 06:59 18:59 Intake Total 1440 Balance 1440 - Medications Medications: Current Medications Enoxaparin Sodium (Lovenox) 40 mg SC DAILY [facility]; Protocol Last Admin: 02/05/19 09:52 Dose: 40 mg Home Med (Home Med) 1 unit PO Q6 PRN PRN Reason: Pain, moderate (4-7) Last Admin: 02/05/19 13:35 Dose: 1 unit Sodium Chloride (Sodium Chloride 0.9%) 1,000 mls @ 100 mls/hr IV .Q10H [facility] Last Admin: 02/05/19 05:30 Dose: 100 mls/hr Piperacillin Sod/Tazobactam Sod (Zosyn 3.375 In Ns 100ml) 100 mls @ 25 mls/hr IVPB Q8 [facility]; Protocol Stop: 02/12/19 07:46 Last Admin: 02/05/19 13:35 Dose: 25 mls/hr Morphine Sulfate (Morphine) 1 mg IVP Q6H PRN PRN Reason: Pain, severe (8-10) Ondansetron HCl (Zofran Inj) 4 mg IVP Q6H PRN PRN Reason: Nausea/Vomiting Pantoprazole Sodium (Protonix Inj) 40 mg IVP DAILY [facility] Last Admin: 02/05/19 09:52 Dose: 40 mg - Labs Labs: 02/05/19 07:15 02/05/19 07:15 PT 15.1 SECONDS (9.4-12.5) H 02/03/19 15:00 INR 1.36 02/03/19 15:00 APTT 32.0 Seconds (26.9-38.3) 02/03/19 15:00 - Constitutional Appears: Non-toxic, No Acute Distress - Head Exam Head Exam: ATRAUMATIC, NORMOCEPHALIC - Eye Exam Eye Exam: EOMI. absent: Scleral icterus - ENT Exam ENT Exam: Mucous Membranes Moist - Neck Exam Neck exam: Positive for: Normal Inspection - Respiratory Exam Respiratory Exam: absent: Rales, Rhonchi, Wheezes - Cardiovascular Exam Cardiovascular Exam: +S1, +S2. absent: Gallop, Rubs - GI/Abdominal Exam GI & Abdominal Exam: Soft, Tenderness (LLQ). 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 Infectious disease consultation was requested for diverticulitis. Plan: Sepsis likely 2/2 diverticulitis Endometrial CA s/p PORFIRIO with BSO and chemo Former smoker H. pylori Afebrile No leukocytosis BCx negative 2/2 day 1 Continue zosyn day 2 GI following, recs appreciated Will discuss with primary team We will follow alongside you Patient was seen and examined and case to be discussed with attending physician Thank you for the pleasure of participating in the care of this interesting patient <Neno Best - Last Filed: 02/05/19 16:46> Objective - Vital Signs/Intake and Output Vital Signs (last 24 hours): Temp Pulse Resp BP Pulse Ox 98.5 F 77 20 127/74 96 02/05/19 06:00 02/05/19 06:00 02/05/19 06:00 02/05/19 06:00 02/05/19 06:00 Intake and Output: 02/05/19 02/05/19 06:59 18:59 Intake Total 1440 Balance 1440 - Medications Medications: Current Medications Enoxaparin Sodium (Lovenox) 40 mg SC DAILY [facility]; Protocol Last Admin: 02/05/19 09:52 Dose: 40 mg Home Med (Home Med) 1 unit PO Q6 PRN PRN Reason: Pain, moderate (4-7) Last Admin: 02/05/19 13:35 Dose: 1 unit Sodium Chloride (Sodium Chloride 0.9%) 1,000 mls @ 100 mls/hr IV .Q10H [facility] Last Admin: 02/05/19 05:30 Dose: 100 mls/hr Piperacillin Sod/Tazobactam Sod (Zosyn 3.375 In Ns 100ml) 100 mls @ 25 mls/hr IVPB Q8 [facility]; Protocol Stop: 02/12/19 07:46 Last Admin: 02/05/19 13:35 Dose: 25 mls/hr Morphine Sulfate (Morphine) 1 mg IVP Q6H PRN PRN Reason: Pain, severe (8-10) Ondansetron HCl (Zofran Inj) 4 mg IVP Q6H PRN PRN Reason: Nausea/Vomiting Pantoprazole Sodium (Protonix Inj) 40 mg IVP DAILY [facility] Last Admin: 02/05/19 09:52 Dose: 40 mg - Labs Labs: 02/05/19 07:15 02/05/19 07:15 PT 15.1 SECONDS (9.4-12.5) H 02/03/19 15:00 INR 1.36 02/03/19 15:00 APTT 32.0 Seconds (26.9-38.3) 02/03/19 15:00 Attending/Attestation - Attestation I have personally seen and examined this patient.: Yes I have fully participated in the care of the patient.: Yes I have reviewed all pertinent clinical information, including history, physical exam and plan: Yes
[2019-02-05 19:04] VITALS: TEMP 98; O2SAT 98
[2019-02-06] MEDS: Sodium Chloride 0.9% 1,000 ML IV SCH (05:00)
[2019-02-06] MEDS: Piperacillin/Tazobact 3.375 gm 100 ML IVPB SCH (05:20)
[2019-02-06 05:50] LABS: BASO # 0.03 K/mm3 (0.0-2.0); BASO % 0.5 % (0.0-3.0); EOS # 0.1 (0.0-0.7); HEMOGLOBIN 10.2 g/dL (12.0-16.0); LYMPH # 2.6 (1.2-3.4); LYMPH % 39.4 % (22.0-35.0); MEAN CELL VOLUME 94.7 fl (80.0-105.0); MEAN CORPUSCULAR HGB CONC 31.7 g/dl (31.0-37.0); MEAN PLATELET VOLUME 9.8 fl (7.0-11.0); MONO # 0.6 (0.1-0.6); MONO % 8.7 % (1.0-6.0); RBC 3.4 10^6/uL (3.5-6.1); RED CELL DISTRIBUTION WIDTH 13.2 % (11.5-14.5); WHITE BLOOD COUNT 6.6 10^3/uL (4.5-11.0)
[2019-02-06 06:01] LABS: ALB/GLOB RATIO 0.9 (1.1-1.8); ALBUMIN 3.1 g/dL (3.0-4.8); ALT/SGPT 24 U/L (7-56); AST/SGOT 26 U/L (14-36); BLOOD UREA NITROGEN 10 mg/dL (7-21); CALCIUM 8.5 mg/dL (8.4-10.5); GFR NON-AFRICAN AMERICAN > 60
[2019-02-06] MEDS: Enoxaparin 40 mg Syringe SC SCH (09:08)
[2019-02-06 09:12] VITALS: BP 131/76; PULSE 70; RESP 18
[2019-02-06] MEDS ORDERED: Cholestyramine 4 gm/Pkt UD PO PRN (10:32)
--- NOTE | 2019-02-06 12:19 | CP.PCM.PN ---
Subjective - Date & Time of Evaluation Date of Evaluation: 02/06/19 Time of Evaluation: 10:10 - Subjective Subjective: Patient states her abdominal pain is getting better, no nausea but is having loose bowel movement. Objective - Vital Signs/Intake and Output Vital Signs (last 24 hours): Temp Pulse Resp BP Pulse Ox 98 F 70 18 131/76 98 02/06/19 09:11 02/06/19 09:11 02/06/19 09:11 02/06/19 09:11 02/06/19 09:11 Intake and Output: 02/06/19 02/06/19 06:59 18:59 Intake Total 2420 Balance 2420 - Medications Medications: Current Medications Enoxaparin Sodium (Lovenox) 40 mg SC DAILY [facility]; Protocol Last Admin: 02/06/19 09:08 Dose: 40 mg Home Med (Home Med) 1 unit PO Q6 PRN PRN Reason: Pain, moderate (4-7) Last Admin: 02/05/19 13:35 Dose: 1 unit Sodium Chloride (Sodium Chloride 0.9%) 1,000 mls @ 100 mls/hr IV .Q10H [facility] Last Admin: 02/06/19 05:00 Dose: 100 mls/hr Piperacillin Sod/Tazobactam Sod (Zosyn 3.375 In Ns 100ml) 100 mls @ 25 mls/hr IVPB Q8 [facility]; Protocol Stop: 02/12/19 07:46 Last Admin: 02/06/19 05:20 Dose: 25 mls/hr Morphine Sulfate (Morphine) 1 mg IVP Q6H PRN PRN Reason: Pain, severe (8-10) Ondansetron HCl (Zofran Inj) 4 mg IVP Q6H PRN PRN Reason: Nausea/Vomiting Pantoprazole Sodium (Protonix Inj) 40 mg IVP DAILY [facility] Last Admin: 02/06/19 09:07 Dose: 40 mg - Labs Labs: 02/06/19 05:30 02/06/19 05:30 PT 15.1 SECONDS (9.4-12.5) H 02/03/19 15:00 INR 1.36 02/03/19 15:00 APTT 32.0 Seconds (26.9-38.3) 02/03/19 15:00 - Constitutional Appears: No Acute Distress - Head Exam Head Exam: NORMAL INSPECTION - Respiratory Exam Respiratory Exam: Decreased Breath Sounds - Cardiovascular Exam Cardiovascular Exam: +S1, +S2 - GI/Abdominal Exam GI & Abdominal Exam: Soft, Tenderness (mild, LLQ). absent: Distended, Guarding, Rigid, Rebound Assessment and Plan - Assessment and Plan (Free Text) Plan: Assessment sepsis due to acute sigmoid diverticulitis, clinically improving antibiotic-associated diarrhea endometrial cancer S/P TAHBSO and chemotherapy Plan on Zosyn - if patient tolerates solid foods, can switch to Augmentin for another 3-5 days with outpatient follow up with Dr. Arrieta, especially for the H. pylori
[2019-02-06] MEDS ORDERED: Amoxicillin-Clav 875-125 mg Tab PO STA (13:11)
--- NOTE | 2019-02-06 13:49 | US ---
HISTORY: Compare with previous and gallstones COMPARISON: CT abdomen and pelvis with contrast performed 02/03/19, abdominal ultrasound performed 05/14/17 TECHNIQUE: Sonographic evaluation of the abdomen. FINDINGS: LIVER: Measures 13.2 cm in sagittal dimension. Echogenic liver may be seen in setting of hepatic parenchymal disease or fatty infiltration. No focal hepatic mass identified. The main portal vein appears patent with normal directional flow. No intrahepatic bile duct dilatation. GALLBLADDER: Cholelithiasis. No gallbladder wall thickening. Negative sonographic Scherer's sign as assessed by the microsoft architect. COMMON BILE DUCT: Measures 5 mm. PANCREAS: Not well visualized. RIGHT KIDNEY: Measures 11.3 x 5.7 x 6.5 cm. No obstructing calculus or hydronephrosis identified. LEFT KIDNEY: Measures 12.1 x 5.4 x 5.7cm. No obstructing calculus or hydronephrosis identified. SPLEEN: Measures approximately 7.6 cm. AORTA: Limited views appear unremarkable. IVC: Limited views appear unremarkable. OTHER FINDINGS: None. IMPRESSION: Echogenic liver may be seen in setting of hepatic parenchymal disease or fatty infiltration. Cholelithiasis.
--- NOTE | 2019-02-06 13:53 | CP.PCM.DIS ---
<Heather Bright - Last Filed: 02/06/19 15:32> Provider - Provider Date of Admission: 02/03/19 17:27 Attending physician: Ambrose Ruelas MD Consults: 02/03/19 18:41 Gastroenterology Consult Routine Comment: Consulting Provider: Keesha Arrieta V Consulting Physician: Keesha Arrieta V Reason for Consult: sigmoid diverticulitis 02/03/19 20:55 Infectious Disease Consult Routine Comment: Consulting Provider: Neno Best Consulting Physician: Neno Best Reason for Consult: diverticulitis, on outpt abx Time Spent in preparation of Discharge (in minutes): 35 Hospital Course - Lab Results Lab Results: Micro Results 02/03/19 18:15 Blood Blood Culture - Preliminary NO GROWTH AFTER 48 HOURS 02/03/19 17:30 Blood Blood Culture - Preliminary NO GROWTH AFTER 48 HOURS 02/03/19 16:55 Urine Random Urine Culture - Final Gram Positive Cocci 02/04/19 03:55 Stool C. difficile Antigen & Toxins A,B - Final Most Recent Lab Values WBC 6.6 10^3/uL (4.5-11.0) 02/06/19 05:30 RBC 3.40 10^6/uL (3.5-6.1) L 02/06/19 05:30 Hgb 10.2 g/dL (12.0-16.0) L 02/06/19 05:30 Hct 32.2 % (36.0-48.0) L 02/06/19 05:30 MCV 94.7 fl (80.0-105.0) 02/06/19 05:30 MCH 30.0 pg (25.0-35.0) 02/06/19 05:30 MCHC 31.7 g/dl (31.0-37.0) 02/06/19 05:30 RDW 13.2 % (11.5-14.5) 02/06/19 05:30 Plt Count 275 10^3/uL (120.0-450.0) 02/06/19 05:30 MPV 9.8 fl (7.0-11.0) 02/06/19 05:30 Neut % (Auto) 49.4 % (50.0-68.0) L 02/06/19 05:30 Lymph % (Auto) 39.4 % (22.0-35.0) H 02/06/19 05:30 [place] % (Auto) 8.7 % (1.0-6.0) H 02/06/19 05:30 Eos % (Auto) 2.0 % (1.5-5.0) 02/06/19 05:30 Baso % (Auto) 0.5 % (0.0-3.0) 02/06/19 05:30 Lymph # (Auto) 2.6 (1.2-3.4) 02/06/19 05:30 [place] # (Auto) 0.6 (0.1-0.6) 02/06/19 05:30 Eos # (Auto) 0.1 (0.0-0.7) 02/06/19 05:30 Baso # (Auto) 0.03 K/mm3 (0.0-2.0) 02/06/19 05:30 Absolute Neuts (auto) 3.28 (1.4-6.5) 02/06/19 05:30 PT 15.1 SECONDS (9.4-12.5) H 02/03/19 15:00 INR 1.36 02/03/19 15:00 APTT 32.0 Seconds (26.9-38.3) 02/03/19 15:00 Sodium 141 mmol/L (132-148) 02/06/19 05:30 Potassium 3.6 mmol/L (3.6-5.0) 02/06/19 05:30 Chloride 107 mmol/L (98-107) 02/06/19 05:30 Carbon Dioxide 27 mmol/L (21-33) 02/06/19 05:30 Anion Gap 10 (10-20) 02/06/19 05:30 BUN 10 mg/dL (7-21) 02/06/19 05:30 Creatinine 0.4 mg/dl (0.7-1.2) L 02/06/19 05:30 Est GFR ( Amer) > 60 02/06/19 05:30 Est GFR (Non-Af Amer) > 60 02/06/19 05:30 Random Glucose 87 mg/dL (70-110) 02/06/19 05:30 Calcium 8.5 mg/dL (8.4-10.5) 02/06/19 05:30 Magnesium 2.1 mg/dL (1.7-2.2) 02/03/19 15:00 Total Bilirubin 0.2 mg/dL (0.2-1.3) 02/06/19 05:30 AST 26 U/L (14-36) 02/06/19 05:30 ALT 24 U/L (7-56) 02/06/19 05:30 Alkaline Phosphatase 72 U/L (38-126) 02/06/19 05:30 Total Protein 6.5 g/dL (5.8-8.3) 02/06/19 05:30 Albumin 3.1 g/dL (3.0-4.8) 02/06/19 05:30 Globulin 3.4 gm/dL 02/06/19 05:30 Albumin/Globulin Ratio 0.9 (1.1-1.8) L 02/06/19 05:30 Lipase 36 U/L (23-300) 02/03/19 15:00 Urine Color Yellow (YELLOW) 02/03/19 16:55 Urine Appearance Clear (CLEAR) 02/03/19 16:55 Urine pH 6.5 (4.7-8.0) 02/03/19 16:55 Ur Specific [place] 1.020 (1.005-1.035) 02/03/19 16:55 Urine Protein Trace mg/dL (<30 mg/dL) H 02/03/19 16:55 Urine Glucose (UA) Negative mg/dL (NEGATIVE) 02/03/19 16:55 Urine Ketones Negative mg/dL (NEGATIVE) 02/03/19 16:55 Urine Blood Negative (NEGATIVE) 02/03/19 16:55 Urine Nitrate Positive (NEGATIVE) H 02/03/19 16:55 Urine Bilirubin Negative (NEGATIVE) 02/03/19 16:55 Urine Urobilinogen 0.2 E.U./dL (<1 E.U./dL) 02/03/19 16:55 Ur Leukocyte Esterase Small Milo/uL (NEGATIVE) H 02/03/19 16:55 Urine RBC 0 - 2 /hpf (0-2) 02/03/19 16:55 Urine WBC 1 - 3 /hpf (0-6) 02/03/19 16:55 Ur Epithelial Cells 4 - 5 /hpf (0-5) 02/03/19 16:55 Physical Exam - Constitutional Appears: No Acute Distress - Head Exam Head Exam: ATRAUMATIC, NORMAL INSPECTION - Eye Exam Eye Exam: EOMI Pupil Exam: NORMAL ACCOMODATION - ENT Exam ENT Exam: Mucous Membranes Moist - Neck Exam Neck exam: Positive for: Normal Inspection - Respiratory Exam Respiratory Exam: Clear to Auscultation Bilateral. absent: Accessory Muscle Use, Wheezes, Respiratory Distress - Cardiovascular Exam Cardiovascular Exam: REGULAR RHYTHM, +S1, +S2 - GI/Abdominal Exam GI & Abdominal Exam: Normal Bowel Sounds, Soft. absent: Distended, Firm, Guarding Additional comments: LLQ minimal tenderness appreciated - Extremities Exam Extremities exam: Positive for: pedal pulses present. Negative for: calf tenderness, pedal edema, tenderness - Back Exam Back exam: absent: CVA tenderness (L), CVA tenderness (R) - Neurological Exam Neurological exam: Alert, CN II-XII Intact, Oriented x3 - Skin Skin Exam: Normal Color, Warm - Hospital Course Hospital Course: Upon admission, 63 year old female with PMH of diverticulitis (last hospitalization 2 years ago) and endometrial CA s/p total hysterectomy and B/L salpingectomy presenting to the hospital for one day history of LLQ abdominal pain. Pain is describe as sharp, constant, rated 9/10, radiating to the left back and associated with nausea and 6 episodes of NBNB vomiting last night. Pain started while at rest last night and her last BM this morning was loose. She admits to loose BM's since starting H. pylori antibiotics 2 weeks ago. Her recent EGD in 11/2018 showed chronic gastritis without dysplasia and H. Pylori. Her recent colonoscopy at the same time showed internal hemorrhoids and a single hyperplastic polyp. She was told by her GI doctor to come to the hospital today for her symptoms. During hospital course, CTAP 02/03 showed acute sigmoid diverituclitis and cholelithiasis without evidence of acute cholecystitis and patient admitted for sigmoid diverticulitis. Patient afebrile and had mild elevation of WBC count. Patient started on CLD and started on IV antibiotics and diet was advanced as tolerated. Patient noted to have hypokalemia which resolved after replacement. Patient given lovenox and protonix for prophylaxis. Patient also given normal saline at 100cc per hour for hydration. C diff antigen and toxin were negative. Patient given morphine as needed for pain and zofran as needed for nausea. Abd US showed cholelithiasis. Infectious disease was consulted and recommended oral antibiotics. Patient agreed with discharge today and all of patient's questions were answered to satisfaction. Patient agreed to follow up with PMD and wire coating operator metal. Discharge Plan - Discharge Medications Prescriptions: Amoxicillin/Clavulanate [Augmentin 875 MG-125 MG] 1 tab PO BID #10 tab - Follow Up Plan Condition: STABLE Disposition: HOME/ ROUTINE Instructions: Diverticulitis Additional Instructions: Please follow up with your primary care doctor, Dr. Le within 3-5 days of discharge. Please follow up with your wire coating operator metal, Dr. Arrieta within 3-5 days of discharge. Please take the antibiotic augmentin twice daily for 5 days. Your medication will be provided to you at bedside for your convenience. Please continue taking protonix. Please return to the ED for any new or worsening symptoms. Referrals: Setfan Guevara MD [Family Provider] - Keesha Arrieta MD [Medical Doctor] - Ambrose Ruelas MD [Staff Provider] - <Ambrose Ruelas - Last Filed: 02/06/19 16:46> Provider - Provider Date of Admission: 02/03/19 17:27 Attending physician: Ambrose Ruelas MD Consults: 02/03/19 18:41 Gastroenterology Consult Routine Comment: Consulting Provider: Keesha Arrieta V Consulting Physician: Keesha Arrieta V Reason for Consult: sigmoid diverticulitis 02/03/19 20:55 Infectious Disease Consult Routine Comment: Consulting Provider: Neno Best Consulting Physician: Neno Best Reason for Consult: diverticulitis, on outpt abx Hospital Course - Lab Results Lab Results: Micro Results 02/03/19 18:15 Blood Blood Culture - Preliminary NO GROWTH AFTER 48 HOURS 02/03/19 17:30 Blood Blood Culture - Preliminary NO GROWTH AFTER 48 HOURS 02/03/19 16:55 Urine Random Urine Culture - Final Gram Positive Cocci 02/04/19 03:55 Stool C. difficile Antigen & Toxins A,B - Final Most Recent Lab Values WBC 6.6 10^3/uL (4.5-11.0) 02/06/19 05:30 RBC 3.40 10^6/uL (3.5-6.1) L 02/06/19 05:30 Hgb 10.2 g/dL (12.0-16.0) L 02/06/19 05:30 Hct 32.2 % (36.0-48.0) L 02/06/19 05:30 MCV 94.7 fl (80.0-105.0) 02/06/19 05:30 MCH 30.0 pg (25.0-35.0) 02/06/19 05:30 MCHC 31.7 g/dl (31.0-37.0) 02/06/19 05:30 RDW 13.2 % (11.5-14.5) 02/06/19 05:30 Plt Count 275 10^3/uL (120.0-450.0) 02/06/19 05:30 MPV 9.8 fl (7.0-11.0) 02/06/19 05:30 Neut % (Auto) 49.4 % (50.0-68.0) L 02/06/19 05:30 Lymph % (Auto) 39.4 % (22.0-35.0) H 02/06/19 05:30 [place] % (Auto) 8.7 % (1.0-6.0) H 02/06/19 05:30 Eos % (Auto) 2.0 % (1.5-5.0) 02/06/19 05:30 Baso % (Auto) 0.5 % (0.0-3.0) 02/06/19 05:30 Lymph # (Auto) 2.6 (1.2-3.4) 02/06/19 05:30 [place] # (Auto) 0.6 (0.1-0.6) 02/06/19 05:30 Eos # (Auto) 0.1 (0.0-0.7) 02/06/19 05:30 Baso # (Auto) 0.03 K/mm3 (0.0-2.0) 02/06/19 05:30 Absolute Neuts (auto) 3.28 (1.4-6.5) 02/06/19 05:30 PT 15.1 SECONDS (9.4-12.5) H 02/03/19 15:00 INR 1.36 02/03/19 15:00 APTT 32.0 Seconds (26.9-38.3) 02/03/19 15:00 Sodium 141 mmol/L (132-148) 02/06/19 05:30 Potassium 3.6 mmol/L (3.6-5.0) 02/06/19 05:30 Chloride 107 mmol/L (98-107) 02/06/19 05:30 Carbon Dioxide 27 mmol/L (21-33) 02/06/19 05:30 Anion Gap 10 (10-20) 02/06/19 05:30 BUN 10 mg/dL (7-21) 02/06/19 05:30 Creatinine 0.4 mg/dl (0.7-1.2) L 02/06/19 05:30 Est GFR ( Amer) > 60 02/06/19 05:30 Est GFR (Non-Af Amer) > 60 02/06/19 05:30 Random Glucose 87 mg/dL (70-110) 02/06/19 05:30 Calcium 8.5 mg/dL (8.4-10.5) 02/06/19 05:30 Magnesium 2.1 mg/dL (1.7-2.2) 02/03/19 15:00 Total Bilirubin 0.2 mg/dL (0.2-1.3) 02/06/19 05:30 AST 26 U/L (14-36) 02/06/19 05:30 ALT 24 U/L (7-56) 02/06/19 05:30 Alkaline Phosphatase 72 U/L (38-126) 02/06/19 05:30 Total Protein 6.5 g/dL (5.8-8.3) 02/06/19 05:30 Albumin 3.1 g/dL (3.0-4.8) 02/06/19 05:30 Globulin 3.4 gm/dL 02/06/19 05:30 Albumin/Globulin Ratio 0.9 (1.1-1.8) L 02/06/19 05:30 Lipase 36 U/L (23-300) 02/03/19 15:00 Urine Color Yellow (YELLOW) 02/03/19 16:55 Urine Appearance Clear (CLEAR) 02/03/19 16:55 Urine pH 6.5 (4.7-8.0) 02/03/19 16:55 Ur Specific [place] 1.020 (1.005-1.035) 02/03/19 16:55 Urine Protein Trace mg/dL (<30 mg/dL) H 02/03/19 16:55 Urine Glucose (UA) Negative mg/dL (NEGATIVE) 02/03/19 16:55 Urine Ketones Negative mg/dL (NEGATIVE) 02/03/19 16:55 Urine Blood Negative (NEGATIVE) 02/03/19 16:55 Urine Nitrate Positive (NEGATIVE) H 02/03/19 16:55 Urine Bilirubin Negative (NEGATIVE) 02/03/19 16:55 Urine Urobilinogen 0.2 E.U./dL (<1 E.U./dL) 02/03/19 16:55 Ur Leukocyte Esterase Small Milo/uL (NEGATIVE) H 02/03/19 16:55 Urine RBC 0 - 2 /hpf (0-2) 02/03/19 16:55 Urine WBC 1 - 3 /hpf (0-6) 02/03/19 16:55 Ur Epithelial Cells 4 - 5 /hpf (0-5) 02/03/19 16:55 Attending/Attestation - Attestation I have personally seen and examined this patient.: Yes I have fully participated in the care of the patient.: Yes I have reviewed all pertinent clinical information, including history, physical exam and plan: Yes Notes (Text): Attending note; Patient seen and examined with resident. Patient is alert and awake. abdominal pain improved. some loose stool present. Denies any fevers, chills. tolerating soft diet. Patient is a 63 year old female with PMH of diverticulitis (last hospitalization 2 years ago) and endometrial CA s/p total hysterectomy and B/L salpingectomy presenting to the hospital for one day history of LLQ abdominal pain. 1. Acute sigmoid diverticulitis; patient has left lower quadrant pain. CT scan showed acute sigmoid diverticulitis without any collection or free air cholelithiasis without cholecystitis. Started on clear liquid diet. Advanaced to soft diet. ID evaluation appreciated. Treated with IV Zosyn. will be discharged home with po Augmentin. 2. Nausea vomiting; resolved. 3. Loose stool; patient was recently treated with doxycycline and Flagyl for H. pylori. Stool for C. difficile is negative. 4. GI prophylaxis with Protonix. GI evaluation appreciated. Abdominal ultrasound showed fatty liver and gallstones. Patient will be discharged with p.o. Augmentin. Upon discharge the patient will follow up with PMD Dr. Guevara. follow up with GI Dr. Arrieta.
--- NOTE | 2019-02-06 14:51 | CP.PCM.PN ---
<Davis Blake - Last Filed: 02/06/19 14:48> Subjective - Date & Time of Evaluation Date of Evaluation: 02/06/19 Time of Evaluation: 14:48 - Subjective Subjective: Complains of loose stool. No other complaints. Objective - Vital Signs/Intake and Output Vital Signs (last 24 hours): Temp Pulse Resp BP Pulse Ox 98 F 70 18 131/76 98 02/06/19 09:11 02/06/19 09:11 02/06/19 09:11 02/06/19 09:11 02/06/19 09:11 Intake and Output: 02/06/19 02/06/19 06:59 18:59 Intake Total 2420 Balance 2420 - Medications Medications: Current Medications Cholestyramine Resin (Questran) 2 gm PO DAILY PRN PRN Reason: Diarrhea Enoxaparin Sodium (Lovenox) 40 mg SC DAILY EARLE; Protocol Last Admin: 02/06/19 09:08 Dose: 40 mg Home Med (Home Med) 1 unit PO Q6 PRN PRN Reason: Pain, moderate (4-7) Last Admin: 02/05/19 13:35 Dose: 1 unit Sodium Chloride (Sodium Chloride 0.9%) 1,000 mls @ 100 mls/hr IV .Q10H E[facility] Last Admin: 02/06/19 05:00 Dose: 100 mls/hr Piperacillin Sod/Tazobactam Sod (Zosyn 3.375 In Ns 100ml) 100 mls @ 25 mls/hr IVPB Q8 E[facility]LE; Protocol Stop: 02/12/19 07:46 Last Admin: 02/06/19 05:20 Dose: 25 mls/hr Morphine Sulfate (Morphine) 1 mg IVP Q6H PRN PRN Reason: Pain, severe (8-10) Ondansetron HCl (Zofran Inj) 4 mg IVP Q6H PRN PRN Reason: Nausea/Vomiting Pantoprazole Sodium (Protonix Inj) 40 mg IVP DAILY E[facility]LE Last Admin: 02/06/19 09:07 Dose: 40 mg - Labs Labs: 02/06/19 05:30 02/06/19 05:30 PT 15.1 SECONDS (9.4-12.5) H 02/03/19 15:00 INR 1.36 02/03/19 15:00 APTT 32.0 Seconds (26.9-38.3) 02/03/19 15:00 - Constitutional Appears: Non-toxic, No Acute Distress - Head Exam Head Exam: ATRAUMATIC, NORMAL INSPECTION - Respiratory Exam Respiratory Exam: Clear to Ausculation Bilateral, NORMAL BREATHING PATTERN - Cardiovascular Exam Cardiovascular Exam: REGULAR RHYTHM, +S1, +S2 - GI/Abdominal Exam GI & Abdominal Exam: Soft, Normal Bowel Sounds. absent: Tenderness - Extremities Exam Extremities Exam: Normal Inspection. absent: Pedal Edema - Neurological Exam Neurological Exam: Alert, Awake, Oriented x3 - Psychiatric Exam Psychiatric exam: Normal Affect, Normal Mood Assessment and Plan - Assessment and Plan (Free Text) Assessment: # LLQ pain 2/2 sigmoid diverticulitis, failed outpatient abx therapy # H pylori gastritis # Endometrial cancer s/p total hysterectomy and BSO - Continue with Zosyn as per ID, appreciate recs. Defer discharge antibiotics to ID as she has been on multiple Abx in the recent past. - can advance diet as tolerated - C diff negative, Blood cultures negative so far. f/u stool culture - c/w PPI - Liver US for history of previous abnormal US. -Trial of questran to help with loose BMs. Case seen and discussed with Dr Arrieta. <Keesha Arrieta V - Last Filed: 02/06/19 20:47> Objective - Vital Signs/Intake and Output Vital Signs (last 24 hours): Temp Pulse Resp BP Pulse Ox 98 F 70 18 131/76 98 02/06/19 09:11 02/06/19 09:11 02/06/19 09:11 02/06/19 09:11 02/06/19 09:11 - Labs Labs: 02/06/19 05:30 02/06/19 05:30 PT 15.1 SECONDS (9.4-12.5) H 02/03/19 15:00 INR 1.36 02/03/19 15:00 APTT 32.0 Seconds (26.9-38.3) 02/03/19 15:00 Attending/Attestation - Attestation I have personally seen and examined this patient.: Yes I have fully participated in the care of the patient.: Yes I have reviewed all pertinent clinical information, including history, physical exam and plan: Yes Notes (Text): This patient was seen and evaluated here earlier along with the GI fellow. This is an addendum to the GI progress report dictated by the fellow. Patient is doing well this has episodes of loose bowel movements. He has been antibiotics. Would recommend complete the course of antibiotics as per ID patient diet has been advanced. Patient advised to use Questran 2 g twice a day as needed for diarrhea. Patient is advised to come to the ER if there are any further worsening of the symptoms. Repeat sonogram was reviewed no focal lesions noticed found to have a gallstones. Advised medical follow-up with Dr. Guevara. And advised follow-up in our office thank you 02/06/19 20:45
== END 2019-02-06 15:27 | disposition home or self-care (01) | DRG 392 ==
LOC: ED 14:22 → ERH 17:27 → 3RNO 19:11
PROVIDERS: ADMIT Internal Medicine; ATTEND Internal Medicine
DX: K57.32 Diverticulitis of large intestine without perforation or abscess without bleeding (principal); K52.1 Toxic gastroenteritis and colitis; K80.20 Calculus of gallbladder without cholecystitis without obstruction; Z79.899 Other long term (current) drug therapy; Z85.42 Personal history of malignant neoplasm of other parts of uterus; Z87.891 Personal history of nicotine dependence; Z90.710 Acquired absence of both cervix and uterus; B96.81 Helicobacter pylori [H. pylori] as the cause of diseases classified elsewhere; E87.6 Hypokalemia; K21.9 Gastro-esophageal reflux disease without esophagitis; T36.95XA Adverse effect of unspecified systemic antibiotic, initial encounter; K76.0 Fatty (change of) liver, not elsewhere classified; Z80.0 Family history of malignant neoplasm of digestive organs; Z80.3 Family history of malignant neoplasm of breast; Z80.7 Family history of other malignant neoplasms of lymphoid, hematopoietic and related tissues; Z92.21 Personal history of antineoplastic chemotherapy; Z90.722 Acquired absence of ovaries, bilateral; K29.50 Unspecified chronic gastritis without bleeding; K64.8 Other hemorrhoids; Z87.19 Personal history of other diseases of the digestive system